=== PATIENT | female | born 1960 | race Caucasian/White ===

== ENCOUNTER → 2018-09-08 | Outpatient (CLI) | payer MEDICARE ==
--- NOTE | 2018-09-09 09:38 | MR ---
Right hip MRI HISTORY: Pain in right hip Multiplanar multisequence imaging through the pelvis with small [id number] images through the righ t hip No comparisons Abnormal increased signal is present at the level of the insertion of the gluteus medius tendon, the tendon is thickened and partially retracted. Some local marrow signal change is present which is like ly reactive, intermediate on T1, increased and T2-weighted sequences. Some increased signal also note d at the origin of the inferior gemellus or external rotator suggesting partial tear or tendinosis. T he labrum shows no definite tear. Articular cartilage signal is maintained. Subchondral geode present along the bony labrum level. There is some mild increased signal at the origin of the hamstring musc ulature which may represent tendinosis or chronic tear. IMPRESSION: Gluteus medius tendon tear and additional findings above.
== END | disposition home or self-care (01) ==
LOC: RADMRIMAIN 16:27
PROVIDERS: ATTEND Orthopaedic Surgery
DX: S39.013A Strain of muscle, fascia and tendon of pelvis, initial encounter (principal); I10 Essential (primary) hypertension

== ENCOUNTER → 2020-05-28 | Outpatient (CLI) | payer MEDICARE ==
--- NOTE | 2020-05-28 14:04 | MR ---
EXAMINATION TYPE: MR lumbar spine wo con DATE OF EXAM: 05/28/2020 COMPARISON: None HISTORY: Low back pain, TECHNIQUE: Multiplanar, multisequence images of the lumbar spine were acquired. The lumbar vertebral segments are normal in height and alignment and there is no fracture or subluxat ion. There is mild to moderate disc disease throughout the lower thoracic and lumbar region greatest at th e L5-S1 level where there are mild discogenic endplate changes. There are no lumbar disc herniations. There is mild posterior disc bulge throughout the lumbar region resulting in mild mass effect on the ventral aspect of thecal sac. There is mild spinal stenosis at the L2-3 and L4-5 levels econdary to h ypertrophy of the facets and mild thickening of the ligamentum flavum. There is mild narrowing of the neural foramina at the L2-3 level bilaterally right greater than left. There is moderate facet degeneration at the L4-5 and L5-S1 levels. The paraspinal soft tissues are unremarkable. IMPRESSION: 1. [id number] degenerative disc disease throughout the lower thoracic and lumbar region. 2. Mild spinal stenosis at the L2-3 and L4-5 levels. 3. No lumbar disc herniation. 4. Moderate to marked facet degeneration in the lower lumbar spine.
== END | disposition home or self-care (01) ==
LOC: RADMRIMAIN 12:56
PROVIDERS: ATTEND Orthopaedic Surgery Orthopaedic Surgery of the Spine
DX: M48.061 Spinal stenosis, lumbar region without neurogenic claudication (principal); M51.34 Other intervertebral disc degeneration, thoracic region; M51.36 Other intervertebral disc degeneration, lumbar region; M47.816 Spondylosis without myelopathy or radiculopathy, lumbar region
CPT/HCPCS: 72148

== ENCOUNTER → 2021-01-16 | Outpatient (CLI) | payer MEDICARE ==
[2021-01-16 13:09] VITALS: BP 137/85; PULSE 73; RESP 18; TEMP 98.7
--- NOTE | 2021-01-16 13:28 | P.PAINCN ---
History of Present Illness - Reason for Consult Consult date: 01/16/21 - History of Present Illness This is a 60 years old female with a chronic history of severe back pain, started more than 10 years ago and she is diagnosed with lumbar degenerative disc disease, and lumbar spondylosis with lumbar facet arthropathy, patient had diagnostic medial branch block lumbar area at L3, L4, L5, bilaterally and she gets 9200% improvement of her low back pain after each block, and she was referred to [facility] to have RFA of the medial branch lumbar area, and reported that her pain is constant and increases with any activity interfere with her quality of life and mostly axial back pain, currently she is on Ultram 50 mg 3 times a day when necessary and she is done physical therapy previously for 8 weeks, and she continued to have severe back pain after physical therapy she continued to do home exercise, denies any motor or sensory deficit she denies any fever or night sweats and there is no change in bowel movement or urination Past Medical History Past Medical History: GERD/Reflux, Hypertension Additional Past Medical History / Comment(s): lower lumbar pain History of Any Multi-Drug Resistant Organisms: None Reported Past Surgical History: Appendectomy, Bariatric Surgery, Cholecystectomy, Heart Catheterization, Hysterectomy, Tonsillectomy Additional Past Surgical History / Comment(s): lap band placed and removed, gastric sleeve,. lt hand surgery x2, rt great toe Past Anesthesia/Blood Transfusion Reactions: No Reported Reaction Smoking Status: Current every day smoker Medications and Allergies Home Medications Medication Instructions Recorded Confirmed Type Aspirin [Adult Low Dose Aspirin EC] 81 mg PO DAILY 01/13/21 01/13/21 History Cholecalciferol (Vitamin D3) 125 mcg PO DAILY 01/13/21 01/13/21 History [Vitamin D3 (125 MCG = 5,000 IU)] Esomeprazole Magnesium [NexIUM 20 mg PO DAILY 01/13/21 01/13/21 History 24Hr] Losartan [Cozaar] 50 mg PO DAILY 01/13/21 01/13/21 History Sertraline HCl [Zoloft] 200 mg PO DAILY 01/13/21 01/13/21 History Sucralfate [Carafate] 1 gm PO QID PRN 01/13/21 01/13/21 History amLODIPine [Norvasc] 5 mg PO DAILY 01/13/21 01/13/21 History buPROPion [Wellbutrin] 100 mg PO DAILY 01/13/21 01/13/21 History traMADol HCl [Ultram] 50 mg PO TID PRN 01/13/21 01/13/21 History traZODone HCL 100 mg PO HS 01/13/21 01/13/21 History Allergies Allergy/AdvReac Type Severity Reaction Status Date / Time prochlorperazine Allergy Unknown Verified 01/13/21 12:53 [From Compazine] sulfamethoxazole Allergy Rash/Hives Verified 01/13/21 12:53 [From Bactrim] trimethoprim [From Bactrim] Allergy Rash/Hives Verified 01/13/21 12:53 Physical Exam Vitals: Vital Signs Temp Pulse Resp BP Pulse Ox 01/16/21 13:03 98.7 F 73 18 137/85 96 Physical Examinations : -Constitutiona : Cooperative , not in acute distress . -HEENT : nech : supple , no Lymphadenopathy , normal thyroid size . : eyes : no ptosis , no icterus, no photophobia . - neurologic : Cranial nerve II to XII intact , no focal neurological deffecit . -psychatric : alert , oriented X 3 , appropriate affect , intact judgment and insight . -Lymphatic : no Lymphadenopathy . - musculoskeltal : Lumber spine moter stegnth lower extremities ,thigh and legs 5/5 Right side , 5/5 Left side deep tendon reflexes : normal Knee Jerk , normal ankle Jerk lumber facet Loading Test =positive Right , positive Left Range of motion of the lumbar spine Flexion 30 degrees, extension 10 degrees strait leg raising test = positive at 30 degree Fabere test= positive Right , and positive LT . Sever tenderness over the Sacroiliac joint on the Right , and Left sides Gaenslen test= positive right ,and positive left . Seated flexion test= positive right ,and positive Left . Distraction test= positive bilaterally Sacroiliac compression test= positive bilaterally Results Comments: MRI of the lumbar spine= lumbar degenerative disease and lumbar spondylosis with lumbar facet arthropathy Assessment and Plan Plan: Assessment and plan=1- Lumbar spondylosis with lumbar facet arthropathy without myelopathy. 2- Lumbar degenerative disc disease. 3-sacroiliitis. she had diagnostic Lumbar medial branch block x2 at [facility], and she got 90% improvement of her low back pain she will be "good candidate to have RFA medial branch lumbar area at L3, L4, L5 bilaterally Time with Patient: Greater than 30 PQRS Measure Charge Sheet Measure #130: Documentation of Current Meds in Medical Chart: Patient's medications documented in chart Measure #226: Tobacco Use: Screen & Cessation Intervention: Pt screened for tobacco use AND intervention given Measure #111: Pneumonia Vaccination: Pneumococcal vaccine NOT administered or previously given Measure #47: Advance Care Plan: Advance care planning discussed & documented, pt chose/unable to give Measure #412: Opioid Treatment Agreement: No documentation of signed opioid treatment agreement Measure #408: Opioid Therapy Follow-up Evaluation: Patient had NO f/u eval minimum every 3 months during opioid therapy Measure #317: Preventitive Care & Scrn High Bld Press & F/U: Normal blood pressure, f/u not required Measure #128: Body Mass Index (BMI) Screening & Follow-up: BMI documented ABOVE normal parameters - f/u documented Measure #131: Pain Assessment & Follow-up: Pain positive & plan documented, Follow-up scheduled Measure #431: Unhealthy Alcohol Use Preventative Care & Scrn: Patient not identified as an unhealthy alcohol user Mode of Arrival: Ambulatory - Pain Location Lower Back Non-Pharmacological Interventions: Heat, Home Exercise, Physical Therapy, St retching Pharmacological Interventions: Block, Epidural, PRN Medication PQRS Narrative: Blood Pressure 137/85 Pain Intensity [Lower Back] 6 Scale Used Numeric (1 - 10) Hx Alcohol Use (MH) Yes Home Medications: Ambulatory Orders Aspirin [Adult Low Dose Aspirin EC] 81 mg PO DAILY 01/13/21 Cholecalciferol (Vitamin D3) [Vitamin D3 (125 MCG = 5,000 IU)] 125 mcg PO DAILY 01/13/21 Esomeprazole Magnesium [NexIUM 24Hr] 20 mg PO DAILY 01/13/21 Losartan [Cozaar] 50 mg PO DAILY 01/13/21 Sertraline HCl [Zoloft] 200 mg PO DAILY 01/13/21 Sucralfate [Carafate] 1 gm PO QID PRN 01/13/21 amLODIPine [Norvasc] 5 mg PO DAILY 01/13/21 buPROPion [Wellbutrin] 100 mg PO DAILY 01/13/21 traMADol HCl [Ultram] 50 mg PO TID PRN 01/13/21 traZODone HCL 100 mg PO HS 01/13/21
== END | disposition home or self-care (01) ==
LOC: PNWHC3 12:56
PROVIDERS: ATTEND Specialist
DX: M51.16 Intervertebral disc disorders with radiculopathy, lumbar region (principal); M47.896 Other spondylosis, lumbar region; M46.1 Sacroiliitis, not elsewhere classified; M46.96 Unspecified inflammatory spondylopathy, lumbar region
CPT/HCPCS: 99211

== ENCOUNTER 2021-02-24 07:00 | Day surgery (SDC) | payer MEDICARE ==
[2021-02-22 10:10] VITALS: BMI 34.7
[~2021-02-24 07:00] MED LIST: LACTATED RINGERS 1,000 ML IV SCH
[2021-02-24 07:23] VITALS: RESP 16; TEMP 97.4
[2021-02-24] MEDS ORDERED: LIDOCAINE 1% (10MG/ML) FOR IV START INTRADERMA ONE (07:29)
[2021-02-24] MEDS ORDERED: ROPIVACAINE 5MG/ML 20ML VIAL ONE (08:14)
[2021-02-24] MEDS ORDERED: TRIAMCINOLONE ACETONIDE 40 MG/ML 1 ML VIAL ONE (08:14)
[2021-02-24] MEDS ORDERED: MIDAZOLAM 2 MG/2 ML VIAL ONE (08:14)
[2021-02-24] MEDS ORDERED: fentaNYL (PF) 50 MCG/ML 2 ML AMP ONE (08:14)
[2021-02-24] MEDS ORDERED: LACTATED RINGERS 1,000 ML IV SCH (08:15)
--- NOTE | 2021-02-24 08:48 | FL ---
Fluoroscopy INDICATION: Pain FINDINGS: Fluoroscopy time: 14 seconds. Images obtained: 0. IMPRESSIONS: 1. Documentation of fluoroscopy.
--- NOTE | 2021-02-24 08:48 | P.PCN ---
Date of Procedure: 02/24/21 Description of Procedure: Pre- and Post-operative Diagnosis: Lumbar facet arthropathy, and lumbar spon dylosis without myelopathy. Procedure: Bilateral L4-5 radiofrequency thermocoagulation of medial branch under fluoroscopic guidance Bilateral L5-S1 dorsal ramus radiofrequency thermocoagulation under fluoroscopic guidance Surgeon: Cristina Delacruz Anesthesia: Local: 1% Lidocaine, IV sedation : Midazolam 2 mg, and fentanyl 100+ 50 + 50 micrograms. Complications: None Estimated blood loss: None. Specimen removed: None Fluoroscopic image: Saved to patient electronic medical records. Indications for Procedure: The patient is well known to pain clinic for his chronic low back pain management. The lumbar facet loading test was positive with a clinical diagnosis of lumbar facet arthropathy. Patient had marked decrease in pain after the diagnostic medial branch procedure. Came here for radiofrequency ablation for longer pain relief. PROCEDURE DESCRIPTION: The patient was seen and identified in the preoperative area. Risks, benefits, complications, and alternatives were discussed with the patient. The patient agreed to proceed with the procedure and signed the consent. IV was started. Vital signs were stable. Patient was taken to the procedure room and timeout was completed. The patient was placed in the prone position on procedure table and a pillow was placed under the abdomen to reduce lumbar lordosis. The lumbosacral area was prepped and draped in the usual sterile fashion. Critical pause was taken. Vital signs were closely monitored during the procedure. The fluoroscopic camera was placed in the anteroposterior position to identify the junction of superior articular process and its corresponding injection with its transverse process of Right side L4, L5, S1, which were anesthetized with 1% lidocaine. We used 18-gauge 100-mm curved, sharp radiofrequency cannula with 10-mm active tip for the procedure. The first cannula was guided by fluoroscopy to the S1 superior articular process and its corresponding junction with its ala. The second cannula was guided by fluoroscopy into the L5 superior articular process and its corresponding junction with its transverse process and pedicle. The third cannula was guided by fluoroscopy into the L4 SAP and its corresponding junction with its transverse process and its pedicle. After confirmation of needle tip position on oblique view, lateral view , then each site underwent motor testing at 2 Hz and 0 to 2.5 volts, and there was good motor stimulation in the back and no radicular symptoms or paresthesias. After confirmation of motor testing, each site was infiltrated with 0.5 mL at each level of block solution. Block solution contained 5 mL of 0.5% Ropivacaine preservative free mixed with 40 MG of Kenalog. At this time, each site was ablated using continuous radiofrequency mode at 80 degrees Celsius for 90 seconds at each level. At the end of the procedure, each needle was retracted approximately 1 cm and the skin was infiltrated with 0.5% ropivacaine preservative free 1 ml at each site. Entire procedure repeated on the left side. All the needles removed intact. Skin was cleansed and bandages were applied. Disposition : The patient tolerated the procedure very well. The patient was transferred to the recovery room and remained stable until discharged home. The patient was given detailed discharge instructions for infection, bleeding, and increased pain at the injection site, and was advised to seek immediate medical attention should significant side effects develop. The patient will be scheduled with Pain Clinic within 4 weeks.
[2021-02-24] MEDS ORDERED: LACTATED RINGERS 700 ML IV ONE (08:49)
[2021-02-24 09:08] VITALS: BP 122/73; PULSE 76
== END 2021-02-24 09:19 | disposition home or self-care (01) ==
LOC: ORPAIN 07:00
DX: G89.29 Other chronic pain (principal); M47.816 Spondylosis without myelopathy or radiculopathy, lumbar region; I10 Essential (primary) hypertension; K21.9 Gastro-esophageal reflux disease without esophagitis; Z90.49 Acquired absence of other specified parts of digestive tract; Z98.890 Other specified postprocedural states; Z88.2 Allergy status to sulfonamides; Z88.8 Allergy status to other drugs, medicaments and biological substances; Z90.710 Acquired absence of both cervix and uterus; Z79.82 Long term (current) use of aspirin
CPT/HCPCS: 64635; 64636; J2250; J3301; J3010; J2795

== ENCOUNTER → 2021-04-17 | Outpatient (CLI) | payer MEDICARE ==
[2021-04-17 10:47] VITALS: BP 130/86; PULSE 65; RESP 18; TEMP 98.3
--- NOTE | 2021-04-17 20:27 | P.PN ---
Subjective Progress Note Date: 04/17/21 This is a follow-up visit for this 60 years old female with a chronic history of severe back pain, she is diagnosed with lumbar spondylosis with lumbar facet arthropathy and lumbar degenerative disc disease , and sacroiliitis, status post RFA medial branch block lumbar area at L3, L4, L5, bilaterally reported that her pain is constant and increases with any activity interfere with her activities of daily living , patient already done physical therapy she continued to do home exercise, denies any motor or sensory deficit she denies any fever or night sweats and there is no change in bowel movement or urination she continue to use Tylenol and Ultram when necessary, the low back pain currently radiating to the buttock area bilaterally Physical Examinations : -Constitutiona : Cooperative , not in acute distress . -HEENT : nech : supple , no Lymphadenopathy , normal thyroid size . : eyes : no ptosis , no icterus, no photophobia . - neurologic : Cranial nerve II to XII intact , no focal neurological deffecit . -psychatric : alert , oriented X 3 , appropriate affect , intact judgment and insight . -Lymphatic : no Lymphadenopathy . - musculoskeltal : Lumber spine moter stegnth lower extremities ,thigh and legs 5/5 Right side , 5/5 Left side deep tendon reflexes : normal Knee Jerk , normal ankle Jerk lumber facet Loading Test = negative bilaterally Range of motion of the lumbar spine Flexion 30 degrees, extension 10 degrees strait leg raising test = negative bilaterally Fabere test= negative bilaterally . Sever tenderness over the Sacroiliac joint on the Right , and Left sides Gaenslen test= positive right ,and positive left . Seated flexion test= positive right ,and positive Left . Distraction test= positive bilaterally Sacroiliac compression test= positive bilaterally Results Comments: MRI of the lumbar spine= lumbar degenerative disease and lumbar spondylosis with lumbar facet arthropathy Assessment and Plan Plan: Assessment and plan= 1- Lumbar spondylosis with lumbar facet arthropathy without myelopathy. 2- Lumbar degenerative disc disease. 3-sacroiliitis. Patient could benefit from bilateral sacroiliac joint steroid injection under fluoroscopy guidance Time with Patient: Greater than 30 PQRS Measure Charge Sheet Measure #130: Documentation of Current Meds in Medical Chart: Patient's medications documented in chart Measure #226: Tobacco Use: Screen & Cessation Intervention: Pt screened for tobacco use AND intervention given Measure #111: Pneumonia Vaccination: Pneumococcal vaccine NOT administered or previously given Measure #47: Advance Care Plan: Advance care planning discussed & documented, pt chose/unable to give Measure #412: Opioid Treatment Agreement: No documentation of signed opioid treatment agreement Measure #408: Opioid Therapy Follow-up Evaluation: Patient had NO f/u eval minimum every 3 months during opioid therapy Measure #317: Preventitive Care & Scrn High Bld Press & F/U: Normal blood pressure, f/u not required Measure #128: Body Mass Index (BMI) Screening & Follow-up: BMI documented ABOVE normal parameters - f/u documented Measure #131: Pain Assessment & Follow-up: Pain positive & plan documented, Follow-up scheduled Measure #431: Unhealthy Alcohol Use Preventative Care & Scrn: Patient not identified as an unhealthy alcohol user Mode of Arrival: Ambulatory Objective - Vital Signs Vital signs: Vital Signs Temp 98.3 F 04/17/21 10:06 Pulse 65 04/17/21 10:06 Resp 18 04/17/21 10:06 BP 130/86 04/17/21 10:06 Pulse Ox 96 04/17/21 10:06 Intake & Output 04/17/21 04/17/21 04/18/21 06:59 18:59 06:59 Weight 87.543 kg
== END | disposition home or self-care (01) ==
LOC: PNWHC3 09:57
PROVIDERS: ATTEND Specialist
DX: M51.36 Other intervertebral disc degeneration, lumbar region (principal); M47.896 Other spondylosis, lumbar region; M46.96 Unspecified inflammatory spondylopathy, lumbar region
CPT/HCPCS: 99211

== ENCOUNTER 2021-06-01 09:16 | Day surgery (SDC) | payer MEDICARE ==
[2021-05-30 15:23] VITALS: BMI 35.4
[2021-06-01 09:52] VITALS: RESP 16; TEMP 98
[2021-06-01] MEDS ORDERED: methylPREDNISolone ACETATE 40 MG/ML 1 ML VIAL ONE (09:55)
[2021-06-01] MEDS ORDERED: MIDAZOLAM 2 MG/2 ML VIAL ONE (09:55)
[2021-06-01] MEDS ORDERED: ROPIVACAINE 5MG/ML 20ML VIAL ONE (09:55)
[2021-06-01] MEDS ORDERED: IOPAMIDOL M200 10 ML VIAL ONE (09:55)
[2021-06-01] MEDS ORDERED: fentaNYL (PF) 50 MCG/ML 2 ML AMP ONE (09:55)
--- NOTE | 2021-06-01 10:10 | P.PCN ---
Date of Procedure: 06/01/21 Description of Procedure: Procedure: Sacroiliac joint injection bilateral Preoperative diagnosis: Sacroiliitis Postoperative diagnosis: Sacroiliitis Imaging: Fluoroscopy was used, images where saved to the medical record Complications: none Anesthesia: 1% lidocaine 5cc with 2 mg of Versed and 100 g of fentanyl Description of the procedure: procedure risk and benefits discussed with the patient, including but not limited, risk of infection and bleeding, and allergic reaction to the medication and incomplete pain relief. Patient agreed and signed consent. Patient was taken to the room and placed in a prone position. Chlorhexidine was used to cleanse the skin. Under sterile conditions patient skin was anesthetized 1% lidocaine. Subcutaneous tissues were also anesthetized with a total 5 mL of 1% lidocaine. After that, a 25-gauge spinal needle was advanced through the anesthetized location under fluoroscopic guidance. Needle was advanced into the inferior portion of the sacroiliac joint. IV contrast was used to confirm spread within the joint. After adequate spread was achieved, 2.5 ML's of 0.5% ropivacaine with 40 mg of depomedrol was injected into the joint (steroid split between both sides if bilateral). Patient tolerated the procedure well. Sent to the recovery room in stable condition. Patient will follow up as directed in the clinic in 4 weeks.
[2021-06-01] MEDS ORDERED: IV FLUID CONTINUATION 1,000 ML IV ONE (10:18)
[2021-06-01 10:34] VITALS: BP 102/62; PULSE 60
--- NOTE | 2021-06-01 10:36 | FL ---
Fluoroscopy HISTORY: Pain 16 seconds fluoroscopy time supplied to the referring clinician. 2 intraoperative C-arm images docum ent the procedure. See dictated report from anesthesia.
== END 2021-06-01 10:52 | disposition home or self-care (01) ==
LOC: ORPAIN 09:16
PROVIDERS: ATTEND Hospitalist
DX: M46.1 Sacroiliitis, not elsewhere classified (principal); Z79.82 Long term (current) use of aspirin
CPT/HCPCS: J2250; J1030; J3010; Q9966; J2795; G0260; 99152

== ENCOUNTER → 2021-06-22 | Outpatient (CLI) | payer MEDICARE ==
--- NOTE | 2021-06-22 10:17 | P.PN ---
Subjective Progress Note Date: 06/22/21 Principal diagnosis: A 60 yr old female with a history of severe and chronic low back pain secondary to lumbar degenerative disc diseases and lumbar spondylosis with facet arthropathy presents today for evaluation status post bilateral SI joint injection #1. Patient states she expanse 80% pain relief x 3 weeks status post procedure. Pain level is currently at 3 out of 10 in intensity, pressure, swollen, stabbing type pain in the lower aspects of her lumbar spine where it meets her pelvis. Denies radiation of pain. Pain is provoked by bending and lifting. Pain is alleviated with medications, topicals, physical therapy in January 2021, chiropractic treatments and 2019, home exercise regimen which includes sitting with legs elevated, massage, repositioning and rest. Interventional pain procedures completed include bilateral SI joint injection #1, bilateral RFA of L4-L5, L5-S1. Patient is currently on Ultram Patient denies any side effects of the medication(s), denies excessive drowsiness or sleepiness, denies suicidal ideation and reports that the current pain medication is helping to control the pain and improve activities of daily living. Patient denies any motor or sensory deficits. Patient denies any fever or night sweats, denies any change in the bowel movements or urination. Physical Examination: -Constitutional: Cooperative. Not in acute distress . -HEENT: Neck is supple. No lymphadenopathy. No thyromegaly. Normal thyroid size. Eyes: No ptosis , no icterus, no photophobia. ENT: No auditory deficits. Normal oropharynx. No Thrush. - Respiratory: Chest clear to auscultations bilaterally. No wheezing. No rhonchi. - Cardiovascular: Regular rate and rhythm. S1 / S2 , no S3 , no S4. - Gastrointestinal: Abdomen soft no tenderness. Bowel sounds positive in all four quadrants. No organomegaly. - Genitourinary: Deferred. - Neurologic: Cranial nerve II to XII intact. No focal neurological deficits. - Psychatric: Alert & oriented x 3. Matching mood & appropriate affect. Judgment and insight intact. - Lymphatic: No Lymphadenopathy. - Musculoskeletal: Cervical spine: Muscle bulk/ tone/ strength in the bilateral upper extremities normal. Facet loading test cervical area positive. Lumbar spine: Motor bulk/ tone/ strength lower extremities , thigh and legs : 5/5 Deep tendon reflexes : Normal Knee Jerk. Normal Ankle Jerk . Vertebral body tenderness to palpation over Lumbar Facet Loading Test positive Straight Leg Raise: positive at 30 degrees right side/ left side Gaenslen's Test positive Sacral spine : Severe tenderness over the Sacroiliac joint: right side / left side Range of motion: Flexion of the lumbar spine <60 degrees Range of motion: Extension of the lumbar spine <20 degrees Gaenslen's Test positive Debra test: positive right side / left side Assessment and plan: Chronic low back pain secondary to lumbar degenerative disc disease , lumbar spondylosis with facet arthropathy without myelopathy Recommendation of bilateral SI joint injection #2 Risks, benefits of procedure discussed and patient verbalized understanding. Denies anticoagulant use. Denies medical history of diabetes mellitus. All patient questions answered MAPS reviewed and it was appropriate. I have spent 31 minutes on patient care today. Dr Cline was available by phone for the evaluation of this patient. The time was used to review the medical records including relevant urine studies and Prescription history (MAPs), review of the available imaging, evaluation and examination of the patient, coordination of care with the medical staff and if applicable referring physicians, as well as creation of the medical record PQRS Measure Charge Sheet PQRS Narrative: Hx Alcohol Use (MH) Yes Home Medications: Ambulatory Orders Aspirin [Adult Low Dose Aspirin EC] 81 mg PO DAILY 01/13/21 Cholecalciferol (Vitamin D3) [Vitamin D3 (125 MCG = 5,000 IU)] 125 mcg PO DAILY 01/13/21 Esomeprazole Magnesium [NexIUM 24Hr] 20 mg PO DAILY 01/13/21 Losartan [Cozaar] 50 mg PO DAILY 01/13/21 Sertraline HCl [Zoloft] 200 mg PO DAILY 01/13/21 Sucralfate [Carafate] 1 gm PO QID PRN 01/13/21 amLODIPine [Norvasc] 5 mg PO DAILY 01/13/21 buPROPion [Wellbutrin] 100 mg PO DAILY 01/13/21 traMADol HCl [Ultram] 50 mg PO TID PRN 01/13/21 traZODone HCL 100 mg PO HS 01/13/21 Metoprolol Tartrate [Lopressor] 12.5 mg PO BID 05/30/21 Rosuvastatin Calcium [Crestor] 40 mg PO HS 05/30/21
[2021-06-22 12:43] VITALS: BP 112/74; PULSE 58; RESP 18; TEMP 98.3
== END | disposition home or self-care (01) ==
LOC: PNWHC3 09:14
PROVIDERS: ATTEND Physician Assistant Medical
DX: M47.896 Other spondylosis, lumbar region (principal); M51.36 Other intervertebral disc degeneration, lumbar region
CPT/HCPCS: 99211

== ENCOUNTER → 2021-08-17 | Outpatient (CLI) | payer MEDICARE ==
--- NOTE | 2021-08-17 17:08 | MR ---
MR left hip HISTORY: Osteoarthritis Multiplanar multisequence imaging obtained through the pelvis with small [id number] images through the left hip Correlation to MR right hip 09/08/2018 There is a spinal curvature, degenerative disc change in the lower lumbar spine There is a left hip joint effusion. Marginal spurring is present. Probable reactive marrow signal vanita nges present within the proximal left femur as well as the acetabulum. Some grade 3 to grade IV chond romalacia is present within the left hip. No definite labral tear. No fracture or dislocation. The origins of the hamstring musculature are normal. There is some improvement in the abnormal signal seen on previous exam about the right hip. No evident adenopathy. IMPRESSION: Osteoarthritis left hip, additional findings above.
== END | disposition home or self-care (01) ==
LOC: RADMRIMAIN 12:36
PROVIDERS: ATTEND Orthopaedic Surgery
DX: M16.12 Unilateral primary osteoarthritis, left hip (principal)

== ENCOUNTER → 2021-09-21 | Outpatient (CLI) | payer MEDICARE ==
[2021-09-21 15:24] LABS: INR 0.9 (<1.2); Prothrombin Time 9.9 sec (9.0-12.0)
[2021-09-21 18:13] LABS: HCT 37.2 % (37.2-46.3); HGB 11.7 g/dL (12.0-15.0); MCH 27.7 pg (27.0-32.0); MCHC 31.5 g/dL (32.0-37.0); MCV 88.2 fL (80.0-97.0); Mean Platelet Volume 10.6 fL (9.5-12.2); NRBC Per 100 WBC 0 /100 WBCS (0.0-0.0); Platelet Count 234 X 10*3/uL (140-440); RBC 4.22 X 10*6/uL (4.10-5.20); RDW 15.1 % (11.5-14.5); WBC 7.01 X 10*3/uL (4.50-10.00)
[2021-09-21 18:42] LABS: African American GFR (CKD) 100.6 (60.0-200.0); Albumin 4.3 g/dL (3.8-4.9); Albumin/Globulin Ratio 1.53 (1.60-3.17); Anion Gap 11.7 mmol/L (10.00-18.00); BUN/Creat Ratio 15.75 Ratio (12.00-20.00); Blood Urea Nitrogen 11.8 mg/dL (9.0-27.0); Calcium 9.4 mg/dL (8.7-10.3); Carbon Dioxide 24.5 mmol/L (20.0-27.5); Globulin 2.8 g/dL (1.6-3.3); Non-African American GFR(CKD) 86.8 (60.0-200.0); Total Bilirubin 0.2 mg/dL (0.30-1.20); Total Protein 7.1 g/dL (6.2-8.2)
[2021-09-21 20:38] LABS: Appearance,Urine Cloudy (Clear); Bilirubin,Urine Negative (Negative); Blood,Urine Negative (Negative); Color,Urine Dark Yellow (Yellow); Ketones,Urine Trace mg/dL (Negative); Nitrite,Urine Negative (Negative); PH, Urine 5.5 (5.0-8.0); Urobilinogen,Urine 0.2 (0.2,1.0)
[2021-09-21 21:06] LABS: Bacteria,Urine None Seen /HPF (None Seen); Calcium Oxalate Crystals,Urine Present /LPF (None Seen); Mucus,Urine Present /LPF (None Seen)
== END | disposition home or self-care (01) ==
LOC: LABPAT 12:21
PROVIDERS: ATTEND Orthopaedic Surgery
DX: Z01.812 Encounter for preprocedural laboratory examination (principal); M16.12 Unilateral primary osteoarthritis, left hip
CPT/HCPCS: 80053; 81001; 82607; 83540; 83721; 84443; 85027; 85610; 85730; 87070

== ENCOUNTER 2021-10-02 05:40 | Observation (INO) | payer MEDICARE ==
[2021-09-28 11:32] VITALS: BMI 36.3
[~2021-10-02 05:40] MED LIST changes: +ACETAMINOPHEN TAB 500 MG TAB PO PRN; +GABAPENTIN 300 MG CAP PO PRN; -LACTATED RINGERS 1,000 ML IV SCH; +MELOXICAM 7.5 MG TAB PO PRN; +TRANEXAMIC ACID IN NACL,ISO-OS 1,000 MG in SALINE 1 100ML.BAG IVPB PRN
[2021-10-02] MEDS ORDERED: DEXAMETHASONE SOD PHOSPHATE 4 MG/ML 1 ML VIAL IV ONE (05:54)
[2021-10-02] MEDS ORDERED: ONDANSETRON 4 MG/2 ML VIAL IVP ONE (05:54)
[2021-10-02] MEDS: LACTATED RINGERS 1,000 ML IV SCH (06:05)
[2021-10-02] MEDS ORDERED: GLYCOPYRROLATE 0.2 MG/ML 2 ML VIAL ONE (06:55)
[2021-10-02] MEDS ORDERED: SUCCINYLCHOLINE CHLORIDE 100 MG/5 ML SYR IV ONE (06:55)
[2021-10-02] MEDS ORDERED: ROCURONIUM 10 MG/ML (5 ML VIAL) IV ONE (06:55)
[2021-10-02] MEDS ORDERED: KETAMINE 10 MG/ML 20 ML VIAL ONE (06:55)
[2021-10-02] MEDS ORDERED: PHENYLEPHRINE-0.9% NACL SYG 1,000 MCG/10 ML SYRINGE ONE (06:55)
[2021-10-02] MEDS ORDERED: MIDAZOLAM 2 MG/2 ML VIAL ONE (06:55)
[2021-10-02] MEDS ORDERED: fentaNYL (PF) 50 MCG/ML 2 ML AMP ONE (06:55)
[2021-10-02] MEDS ORDERED: PROPOFOL 10 MG/ML 20 ML VIAL IV ONE (06:55)
[2021-10-02] MEDS ORDERED: ePHEDrine 50 MG/ML 1 ML VIAL ONE (06:55)
[2021-10-02] MEDS ORDERED: TRANEXAMIC ACID IN NACL,ISO-OS 1,000 MG/100 ML BAG ONE (06:55)
[2021-10-02] MEDS ORDERED: NEOSTIGMINE 1 MG/ML 10 ML VIAL ONE (06:55)
[2021-10-02] MEDS ORDERED: ROPIVACAINE 5 MG/ML 30 ML VIAL MISCELLANE ONE ×2 (07:31→08:12)
[2021-10-02] MEDS ORDERED: ceFAZolin 1,000 MG in SODIUM CHLORIDE 0.9% 1,000 ML IRRIGATION ONE (07:32)
--- NOTE | 2021-10-02 08:18 | P.OP ---
Date of Procedure: 10/02/21 Preoperative Diagnosis: Severe osteoarthritis left hip Postoperative Diagnosis: Severe osteoarthritis left hip Procedure(s) Performed: Left total arthroplasty with a direct anterior approach Implants: [employer] Polarstem standard size 6 collar [employer] R3, 3 hole hemispherical acetabular shell, 48 mm [employer] Reflection 6.5 mm cancellus screw, 20 mm, 25 mm [employer] R3, XLPE 20 acetabular liner [employer] Oxinium femoral head 32 m, +0 All components were press-fit. The articulation is Oxinium on polyethylene. Anesthesia: GETA, spinal Surgeon: Venkatesh Lopez Injection Molding Operator #1: Gracy Car Estimated Blood Loss (ml): 250 Pathology: other (Femoral head) Condition: stable Disposition: PACU Indications for Procedure: After failure of conservative treatment we discussed the surgical and non surgical treatment options at length. Patient wishes to proceed with a total hip arthroplasty with a direct anterior approach. Complications specific to this procedure were discussed at length, including but not limited to infection, leg length discrepancy, dislocation, nerve injury, and fracture. Covid-19 was also discussed at length with the patient, and they are aware of the current policies and procedures. The patient was given the option of delaying surgery, but they elect to proceed knowing these risks. Patient is aware of all these complications and informed consent was obtained Operative Findings: The operative findings are consistent with severe osteoarthritis the left hip Description of Procedure: Patient was seen and evaluated in the preoperative area and the consent was reviewed. The operative site was marked with a skin marker. The patient was then brought to the operating room and given preoperative antibiotics intravenously. 1 g of Tranexamic acid was also given intravenously. A spinal anesthetic was administered by the anesthesia department. The spinal anesthetic was found to be insufficient for anesthesia, so a general anesthetic was administered. The patient was then placed on the Hines table with the bony prominences well-padded. The hip area was then prepped with a ChloraPrep solution and draped in the usual sterile fashion. A universal timeout was then performed, which confirmed the patient's name, surgical site, ALLERGIES, and procedure being performed on the consent. Next the incision site was located at 1 cm distal and 2 cm lateral to the anterior superior iliac spine. The skin and subcutaneous tissues were sharply incised. Incision was carefully dissected down to the fascia overlying the tensor fascia zachary muscle. This fascia was then incised in line with the incision. Care was taken to stay laterally in order to avoid injuring the lateral femoral cutaneous nerve. Next, using blunt finger dissection, the tensor fascia zachary muscle was dissected off its investing fascia. The muscle was then carefully retracted laterally with a cobra retractor over the lateral neck of the femur. Next, the circumflex vessels were identified and cauterized using the AquaMantis device. The anterior hip capsule was then exposed. The capsule was then opened and an inverted T fashion. Cobra retractors were then placed intracapsularly. The retractors were maintained intracapsular throughout the procedure. The proximal femur was then visualized. Fluoroscopic x-rays were then taken in order to evaluate the preoperative leg lengths. A small amount of traction was placed on the leg. The femoral neck was then osteotomized at the appropriate level above the lesser trochanter. A small wedge of bone was then removed from the remaining femoral head. Next, using a corkscrew the femoral head was removed from the acetabulum. On gross visual inspection, the femoral head had complete loss of articular cartilage and multiple periarticular osteophytes. The femoral head was then measured. Attention was then turned to the acetabulum. The acetabulum was exposed and any remaining labrum was excised. Sequential reaming of the acetabulum was performed using fluoroscopic guidance until there was a good bed of bleeding cancellus bone. When the appropriate size was reache d, a trial was then placed. The position and fit of the trial was checked with fluoroscopy. The trial was then removed. Then, using fluoroscopic guidance, the final implant was impacted at 20 of anteversion and 40 of abduction, and fully seated in the acetabulum. 2 screws were then placed in the acetabulum. Again fluoroscopy was used to check position of the screws. Next, the liner was then impacted, with a 20 elevated liner located in the anterior superior quadrant. Component locking was confirmed. Attention was then directed to the femur. With the aid of the Hines table, the femur was externally rotated to approximately 130, extended, and adducted under the opposite leg. A side hook was then placed under the proximal femur, and the side hook elevator was used to elevate the proximal femur while releasing the capsule. Retractors were then placed. A capsular release was performed, as well as a release of the conjoined tendon, which afforded excellent visualization of the proximal femur. Next, a box osteotome was used to lateralize the proximal femur. A glass cutter hand was then used to locate the femoral canal. Sequential broaching was then performed with appropriate size which afforded excellent fixation in the proximal femur. A trial was then placed with appropriate head and neck, and the hip was gently reduced with the aid of the Hines table. Fluoroscopy was then used to check position of the components, as well as to ensure equal leg lengths. The hip was then gently dislocated and the trials were then removed. Final implants were then impacted and the hip was again reduced. Final fluoroscopic x-rays confirmed that the components were in anatomic position, as well as equal leg lengths. The hip was also taken through range of motion, and found to be stable. The hip was then copiously irrigated with antibiotic solution with pulsatile lavage. The hip was then irrigated with Irrisept solution. The soft tissues were then injected with a ropivacaine solution. A second dose of 1 g of Tranexamic acid was also given intravenously. The fascia was then closed with 2-0 strata fix suture. The subcutaneous tissue was closed with 3-0 Vicryl. The subcuticular tissue was closed with 3-0 strata fix suture. The skin was then closed with Exofin skin glue. After the glue and dried, and Optifoam silver impregnated dressing was applied. The patient was then transferred to the recovery room in stable condition. The resident assistant OBDULIO Walter was required due to the complexity of surgery, and the need for skilled surgical pathologist for positioning, draping, exposure, retraction, and closure of the wound.
[2021-10-02] MEDS ORDERED: diazePAM 5 MG TAB PO PRN (08:44)
[2021-10-02] MEDS ORDERED: HYDROmorphone 0.5 MG/0.5 ML SYRINGE IVP PRN (08:44)
[2021-10-02] MEDS ORDERED: ONDANSETRON 4 MG/2 ML VIAL IVP PRN (08:44)
[2021-10-02] MEDS ORDERED: MAGNESIUM HYDROXIDE 2,400 MG/10 ML CUP PO PRN (08:44)
[2021-10-02] MEDS ORDERED: TEMAZEPAM 15 MG CAP PO PRN (08:44)
[2021-10-02] MEDS ORDERED: NALOXONE 0.4 MG/ML 1 ML VIAL IV PRN (08:44)
[2021-10-02] MEDS: HYDROmorphone 0.5 MG/0.5 ML SYRINGE IVP PRN ×8 (09:05→21:35)
--- NOTE | 2021-10-02 09:21 | XR ---
Fluoroscopy History: TOTAL ANT HIP LT TOTAL ANTERIOR HIP. 36 SEC FL TIME. 3 IMAGES ON SYN
[2021-10-02] MEDS ORDERED: KETOROLAC 15 MG/ML 1 ML VIAL IVP ONE (09:22)
[2021-10-02] MEDS ORDERED: LACTATED RINGERS 1,000 ML IV ONE ×2 (09:30→11:30)
--- NOTE | 2021-10-02 09:35 | XR ---
EXAMINATION TYPE: XR Hip Limited LT DATE OF EXAM: 10/02/2021 CLINICAL HISTORY: Postoperative evaluation TECHNIQUE: Single portable view of the left hip was submitted. FINDINGS: Noted are changes of total hip arthroplasty with femoral and acetabular components appearin g well seated. Alignment is anatomic. Postsurgical soft tissue changes are evident. IMPRESSION: Satisfactory postoperative alignment
--- NOTE | 2021-10-02 09:38 | FL ---
Fluoroscopy History: TOTAL ANT HIP LEFT LT TOTAL ANTERIOR HIP. 36 SEC FL TIME. 3 IMAGES UNDER HIP REQUEST ON SYN
[2021-10-02] MEDS: SODIUM CHLORIDE 0.9% 1,000 ML IV SCH ×2 (12:27→20:53)
[2021-10-02] MEDS: HYDROcodone/APAP 7.5-325MG 1 EACH TAB PO PRN ×2 (12:37→23:09)
[2021-10-02] MEDS: SENNOSIDES-DOCUSATE SODIUM 1 EACH TAB PO SCH (21:25)
[2021-10-02] MEDS: ASPIRIN 325 MG TAB PO SCH (21:25)
[2021-10-02] MEDS: ATORVASTATIN 80 MG TAB PO SCH (21:25)
--- NOTE | 2021-10-02 22:48 | P.CONS ---
History of Present Illness - Reason for Consult Consult date: 10/02/21 Medical management - Chief Complaint Status post left total hip arthroplasty - History of Present Illness Patient is a 60-year-old female with a known history of hypertension, hyperlipidemia, osteoarthritis, coronary artery disease with history of cardiac catheterization and no PCI and prior gastric sleeve surgery and currently everyday smoker was admitted to the hospital for elective left total hip arthroplasty. Patient underwent left total arthroplasty with direct anterior approach. Tolerated the procedure very well. Postoperatively patient is hypotensive and bradycardic with heart rate in 50s. Patient otherwise denies any complaints of dizziness or lightheadedness. No cough or sputum production. No nausea vomiting or abdominal pain or diarrhea. Denies recent illnesses. Patient has been afebrile. No nausea vomiting. Review of Systems Constitutional: Patient denies any fever or chills . Generalized weakness. Abdomen: Patient denied any nausea or vomiting or abd. pain Cardiovascular: Patient denies any chest pain or short of breath no palpitations. Respiratory: patient denied any cough is from production. No shortness of breath Neurologic: Patient denied any numbness or tingling headache. Musculoskeletal: Patient denies any complaints of joint swelling or deformity. Skin: Negative Psychiatric: Negative Endocrine: No heat or cold intolerance. No recent weight gain. Genitourinary: No dysuria or hematuria. All other 14 point ROS negative except the above Past Medical History Past Medical History: Coronary Artery Disease (CAD), Eye Disorder, GERD/Reflux, Hyperlipidemia, Hypertension, Osteoarthritis (OA) Additional Past Medical History / Comment(s): Lower lumbar pain, Bilateral Cataract, migraines, occ palpitations, "mild CAD", hiatal hernia, hx ulcer, hx colitis, hx IBS, hx diverticulitis, degenerative disk disease, History of Any Multi-Drug Resistant Organisms: None Reported Past Surgical History: Appendectomy, Bariatric Surgery, Section, Cholecystectomy, Heart Catheterization, Hysterectomy, Orthopedic Surgery, Tonsillectomy Additional Past Surgical History / Comment(s): Lap band placed and removed, gastric sleeve, left hand surgery X2, right great toe surgery. COLONOSCOPY/EGD, Past Anesthesia/Blood Transfusion Reactions: No Reported Reaction Past Psychological History: Anxiety, Depression Smoking Status: Current every day smoker Past Alcohol Use History: Rare Additional Past Alcohol Use History / Comment(s): Smokes 1/4 ppd., has smoked for over 30 yrs Past Drug Use History: None Reported - Past Family History Mother Family Medical History: Cancer Additional Family Medical History / Comment(s): Breast cancer. Father Family Medical History: Cancer Additional Family Medical History / Comment(s): Colon Cancer. Medications and Allergies Home Medications Medication Instructions Recorded Confirmed Type Aspirin [Adult Low Dose Aspirin EC] 81 mg PO DAILY 01/13/21 10/02/21 History Cholecalciferol (Vitamin D3) 125 mcg PO DAILY 01/13/21 10/02/21 History [Vitamin D3 (125 MCG = 5,000 IU)] Esomeprazole Magnesium [NexIUM 20 mg PO DAILY 01/13/21 10/02/21 History 24Hr] Losartan [Cozaar] 50 mg PO DAILY 01/13/21 10/02/21 History Sertraline HCl [Zoloft] 200 mg PO DAILY 01/13/21 10/02/21 History Sucralfate [Carafate] 1 gm PO QID PRN 01/13/21 10/02/21 History amLODIPine [Norvasc] 5 mg PO DAILY 01/13/21 10/02/21 History traMADol HCl [Ultram] 50 mg PO TID PRN 01/13/21 10/02/21 History traZODone HCL 100 mg PO HS 01/13/21 10/02/21 History Metoprolol Tartrate [Lopressor] 12.5 mg PO BID 05/30/21 10/02/21 History Rosuvastatin Calcium [Crestor] 40 mg PO HS 05/30/21 10/02/21 History Aspirin 325 mg PO BID #60 tab 10/02/21 Rx HYDROcodone/APAP 7.5-325MG [[place] 1 - 2 tab PO Q6HR PRN #32 tab 10/02/21 Rx 7.5-325] Meloxicam [Mobic] 1 - 2 tab PO DAILY PRN #60 tab 10/02/21 Rx Ondansetron Odt [Zofran Odt] 4 mg PO Q8HR PRN #14 tab 10/02/21 Rx Sennosides-Docusate Sodium 1 tab PO BID #60 tablet 10/02/21 Rx [Senokot-S] Allergies Allergy/AdvReac Type Severity Reaction Status Date / Time prochlorperazine Allergy ABN. Verified 10/02/21 05:57 [From Compazine] FLIGHT/FIGHT RESPONSE sulfamethoxazole Allergy Rash/Hives Verified 10/02/21 05:57 [From Bactrim] trimethoprim [From Bactrim] Allergy Rash/Hives Verified 10/02/21 05:57 Physical Exam Vitals: Vital Signs Temp Pulse Pulse Resp BP Pulse Ox 10/02/21 11:30 58 L 16 82/51 97 10/02/21 11:00 75 16 98/54 96 10/02/21 10:30 74 16 101/55 97 10/02/21 10:00 53 L 16 116/61 66 L 10/02/21 09:45 68 18 122/64 97 10/02/21 09:30 71 16 107/69 98 10/02/21 09:15 76 16 114/58 95 10/02/21 09:00 70 16 117/60 97 10/02/21 08:48 96.8 F L 81 12 136/69 96 10/02/21 06:10 98.1 F 78 18 152/74 98 Intake and Output 10/01/21 10/02/21 10/02/21 22:59 06:59 14:59 Intake Total 100 1751 Output Total 250 Balance 100 1501 Intake: IV 100 1751 Output: Estimated Blood Loss 250 Other: Weight 92.3 kg 92.3 kg PHYSICAL EXAMINATION: Patient is lying in the bed comfortably, no acute distress, awake alert and oriented.. HEENT: Normocephalic. Neck is supple. Pupils reactive. Nostrils clear. Oral cavity is moist. Neck reveals no JVD, carotid bruits, or thyromegaly. CHEST EXAMINATION: Trachea is central. Symmetrical expansion. Lung scruggs clear to auscultation and percussion. CARDIAC: Normal S1, S2 with no gallops. No murmurs ABDOMEN: Soft. Bowel sounds present. Nontender. No organomegaly. No abdominal bruits. Extremities: reveal no edema. No clubbing or cyanosis Neurologically awake, alert, oriented x3 with well-coordinated movements. No focal deficits noted Skin: No rash or skin lesions. Psychiatric: Coperative. Nonsuicidal, anxious. Musculoskeletal: No joint swelling or deformity. Left hip surgical site is bandaged. Normal range of motion. Assessment and Plan Assessment: Left total hip arthroplasty postoperative day 0 Hypotension likely due to anesthesia and pain medications. Improving. Nonobstructive coronary disease with no history of PCI Hypertension Hyperlipidemia GERD Osteoarthritis History of gastric sleeve surgery Anxiety/depression Currently everyday smoker DVT prophylaxis. Plan: Patient will be continued on IV hydration. Does take Norvasc, metoprolol and losartan at home. Blood pressure medications on hold. Continue with pain medications and avoid narcotic medications as possible. Encourage incentive spirometry. Encourage ambulation and we will follow-up closely. Further recommendations based on the clinical course. Thank you for your consult.
[2021-10-03] MEDS: HYDROmorphone 1 MG/ML 1 ML SYRINGE IVP PRN ×2 (01:01→06:11)
[2021-10-03] MEDS: HYDROcodone/APAP 7.5-325MG 1 EACH TAB PO PRN (05:35)
[2021-10-03] MEDS: SODIUM CHLORIDE 0.9% 1,000 ML IV SCH ×2 (05:59→12:04)
[2021-10-03] MEDS: LACTATED RINGERS 1,000 ML IV SCH (06:00)
[2021-10-03 09:20] LABS: Basophils # (A) 0.04 X 10*3/uL (0.00-0.10); Basophils % (A) 0.4 %; Eosinophils # (A) 0 X 10*3/uL (0.04-0.35); Eosinophils % (A) 0 %; HCT 31.2 % (37.2-46.3); HGB 9.8 g/dL (12.0-15.0); Immature Grans, Automated 0.4 %; Lymphocytes # (A) 1.48 X 10*3/uL (0.90-5.00); Lymphocytes % (A) 13.2 %; MCH 27.8 pg (27.0-32.0); MCHC 31.4 g/dL (32.0-37.0); MCV 88.4 fL (80.0-97.0); Monocytes # (A) 1.05 X 10*3/uL (0.20-1.00); Monocytes % (A) 9.4 %; NRBC Per 100 WBC 0 /100 WBCS (0.0-0.0); Neutrophils # (A) 8.59 X 10*3/uL (1.80-7.70); Neutrophils % (A) 76.6 %; Platelet Count 207 X 10*3/uL (140-440); RBC 3.53 X 10*6/uL (4.10-5.20); RDW 14.9 % (11.5-14.5)
[2021-10-03] MEDS: SERTRALINE 100 MG TAB PO SCH (09:50)
[2021-10-03] MEDS: ASPIRIN 325 MG TAB PO SCH ×2 (09:50→20:51)
[2021-10-03] MEDS: HYDROcodone/APAP 10-325MG 1 EACH TAB PO PRN ×3 (09:51→20:51)
[2021-10-03 10:02] LABS: African American GFR (CKD) 90.4 (60.0-200.0); BUN/Creat Ratio 13.69 Ratio (12.00-20.00); Blood Urea Nitrogen 11.2 mg/dL (9.0-27.0); Calcium 8.9 mg/dL (8.7-10.3); Carbon Dioxide 20.9 mmol/L (20.0-27.5); Chloride 107 mmol/L (96-109); Glucose 96 mg/dL (70-110); Potassium 3.7 mmol/L (3.5-5.5); Sodium 141 mmol/L (135-145)
[2021-10-03] MEDS: KETOROLAC 15 MG/ML 1 ML VIAL IVP SCH ×2 (11:18→17:14)
[2021-10-03] MEDS: ATORVASTATIN 80 MG TAB PO SCH (20:51)
[2021-10-03] MEDS: SENNOSIDES-DOCUSATE SODIUM 1 EACH TAB PO SCH (20:51)
[2021-10-04] MEDS: KETOROLAC 15 MG/ML 1 ML VIAL IVP SCH ×3 (01:06→11:46)
[2021-10-04] MEDS: SODIUM CHLORIDE 0.9% 1,000 ML IV SCH ×2 (01:08→11:15)
[2021-10-04] MEDS: HYDROcodone/APAP 10-325MG 1 EACH TAB PO PRN ×2 (02:18→11:46)
[2021-10-04] MEDS: LACTATED RINGERS 1,000 ML IV SCH (06:30)
[2021-10-04 07:37] VITALS: BP 118/67; PULSE 86; RESP 18; TEMP 99.7
--- NOTE | 2021-10-04 07:47 | P.DS ---
Providers Date of admission: 10/03/21 08:12 Expected date of discharge: 10/04/21 Attending physician: Venkatesh Lopez Consults: 10/02/21 08:44 Consult Physician Routine Consulting Provider: Eileen Hernandez Consult Reason/Comments: Medical management Do you want consulting provider notified?: Yes Primary care physician: Elaina Forrester - Discharge Diagnosis(es) (1) Status post total replacement of left hip Current Visit: Yes Status: Acute (2) Osteoarthritis of left hip Current Visit: Yes Status: Acute Hospital Course: This is a 60-year-old Female with known history of degenerative arthritis of the Left hip. The patient presents for evaluation. After discussion and consideration patient elects to proceed with total hip arthroplasty with direct anterior approach. The patient is seen preoperatively by primary care physician and cleared for surgery. Patient is admitted to [facility] on 10/02/2021 for total hip arthroplasty with direct anterior approach. The procedure is performed without complication or sequelae. She had significant pain control issues on postop day #1. Her discharge was held. She is doing much better today, postop day #2. Labs and vital signs are stable on day of discharge. On day of discharge patient's hip incision is healing well. There is minimal erythema. There is no drainage noted at this time. There is minimal soft tissue swelling to the hip and thigh. Patient has full foot and ankle motion without difficulty or pain. Neurovascular status to the lower extremity is intact. Patient is discharged to home in good condition. Please see med rec for accurate list of home medications. Patient Condition at Discharge: Good Plan - Discharge Summary Discharge Rx Participant: Yes New Discharge Prescriptions: New Ondansetron Odt [Zofran Odt] 4 mg PO Q8HR PRN #14 tab PRN Reason: Nausea Aspirin 325 mg PO BID #60 tab Meloxicam [Mobic] 1 - 2 tab PO DAILY PRN #60 tab PRN Reason: Pain HYDROcodone/APAP 7.5-325MG [[place] 7.5-325] 1 - 2 tab PO Q6HR PRN #32 tab PRN Reason: Pain Sennosides-Docusate Sodium [Senokot-S] 1 tab PO BID #60 tablet Ketorolac [Toradol] 10 mg PO Q6HR #20 tab No Action Losartan [Cozaar] 50 mg PO DAILY Sucralfate [Carafate] 1 gm PO QID PRN PRN Reason: acid reflux Metoprolol Tartrate [Lopressor] 12.5 mg PO BID traZODone HCL 100 mg PO HS amLODIPine [Norvasc] 5 mg PO DAILY Cholecalciferol (Vitamin D3) [Vitamin D3 (125 MCG = 5,000 IU)] 125 mcg PO DAILY Sertraline HCl [Zoloft] 200 mg PO DAILY Aspirin [Adult Low Dose Aspirin EC] 81 mg PO DAILY traMADol HCl [Ultram] 50 mg PO TID PRN PRN Reason: Pain Esomeprazole Magnesium [NexIUM 24Hr] 20 mg PO DAILY Rosuvastatin Calcium [Crestor] 40 mg PO HS Discharge Medication List Aspirin [Adult Low Dose Aspirin EC] 81 mg PO DAILY 01/13/21 [History] Cholecalciferol (Vitamin D3) [Vitamin D3 (125 MCG = 5,000 IU)] 125 mcg PO DAILY 01/13/21 [History] Esomeprazole Magnesium [NexIUM 24Hr] 20 mg PO DAILY 01/13/21 [History] Losartan [Cozaar] 50 mg PO DAILY 01/13/21 [History] Sertraline HCl [Zoloft] 200 mg PO DAILY 01/13/21 [History] Sucralfate [Carafate] 1 gm PO QID PRN 01/13/21 [History] amLODIPine [Norvasc] 5 mg PO DAILY 01/13/21 [History] traMADol HCl [Ultram] 50 mg PO TID PRN 01/13/21 [History] traZODone HCL 100 mg PO HS 01/13/21 [History] Metoprolol Tartrate [Lopressor] 12.5 mg PO BID 05/30/21 [History] Rosuvastatin Calcium [Crestor] 40 mg PO HS 05/30/21 [History] Aspirin 325 mg PO BID #60 tab 10/02/21 [Rx] HYDROcodone/APAP 7.5-325MG [[place] 7.5-325] 1 - 2 tab PO Q6HR PRN #32 tab 10/02/21 [Rx] Meloxicam [Mobic] 1 - 2 tab PO DAILY PRN #60 tab 10/02/21 [Rx] Ondansetron Odt [Zofran Odt] 4 mg PO Q8HR PRN #14 tab 10/02/21 [Rx] Sennosides-Docusate Sodium [Senokot-S] 1 tab PO BID #60 tablet 10/02/21 [Rx] Ketorolac [Toradol] 10 mg PO Q6HR #20 tab 10/04/21 [Rx] Follow up Appointment(s)/Referral(s): [facility] [REFERRING] - As Needed Elaina Forrester DO [Primary Care Provider] - 1 Week Venkatesh Lopez DO [Doctor of Osteopathic Medicine] - 10/18/21 1:50 pm Activity/Diet/Wound Care/Special Instructions: May bear wt as tolerated w walker. Leave Optifoam dressing intact 7 days post op. May shower 48 h post op. Take Toradol (Ketotorlac) for the first 5 days, then may switch to Meloxicam daily. Discharge Disposition: HOME WITH HOME HEALTH SERVICES
[2021-10-04] MEDS: SERTRALINE 100 MG TAB PO SCH (09:01)
[2021-10-04] MEDS: ASPIRIN 325 MG TAB PO SCH (09:01)
== END 2021-10-04 12:11 | disposition home health service (06) ==
LOC: OR 05:40 → 4SSUR 08:43 → OR 10-03 08:12 → 4SSUR 10-03 08:12
PROVIDERS: ADMIT Orthopaedic Surgery; ATTEND Orthopaedic Surgery
DX: M16.12 Unilateral primary osteoarthritis, left hip (principal); I10 Essential (primary) hypertension; R00.2 Palpitations; F32.A Depression, unspecified; E78.2 Mixed hyperlipidemia; M41.9 Scoliosis, unspecified; R45.0 Nervousness; I95.2 Hypotension due to drugs; R51.9 Headache, unspecified; R26.81 Unsteadiness on feet; Z97.3 Presence of spectacles and contact lenses; K22.70 Barrett's esophagus without dysplasia; Z79.82 Long term (current) use of aspirin; Z98.1 Arthrodesis status; Z98.84 Bariatric surgery status; Z90.49 Acquired absence of other specified parts of digestive tract; Z90.710 Acquired absence of both cervix and uterus; Z98.890 Other specified postprocedural states; Z83.3 Family history of diabetes mellitus; Z82.49 Family history of ischemic heart disease and other diseases of the circulatory system; F17.200 Nicotine dependence, unspecified, uncomplicated; K58.9 Irritable bowel syndrome, unspecified; K21.9 Gastro-esophageal reflux disease without esophagitis; D64.9 Anemia, unspecified; Z87.442 Personal history of urinary calculi; Z87.19 Personal history of other diseases of the digestive system; M10.9 Gout, unspecified; F41.9 Anxiety disorder, unspecified; I25.10 Atherosclerotic heart disease of native coronary artery without angina pectoris; M54.50 Low back pain, unspecified; Z80.3 Family history of malignant neoplasm of breast; Z80.0 Family history of malignant neoplasm of digestive organs; Z79.891 Long term (current) use of opiate analgesic; Z79.899 Other long term (current) drug therapy; Z88.2 Allergy status to sulfonamides; Z88.8 Allergy status to other drugs, medicaments and biological substances
CPT/HCPCS: 97116; 97161; 86900; 86901; 80048; 84443; 85025; 86850; 88300; 73501; 27130; G0378 ×2; C1776; J2250; J1100; J2710; J0690 ×2; J2405; J3010; J1170 ×2; J2795; J1885 ×3; J2370; J0330; J2704

== ENCOUNTER → 2022-08-27 | Outpatient (CLI) | payer MEDICARE ==
[2022-08-27 16:40] LABS: INR 0.9 (<1.2); Partial Thromboplastin Time 22.3 sec (22.0-30.0)
--- NOTE | 2022-08-27 22:35 | XR ---
EXAMINATION TYPE: XR chest 2V DATE OF EXAM: 08/27/2022 COMPARISON: 12/09/2011 HISTORY: 61-year-old female presurgical evaluation TECHNIQUE: Frontal and lateral views FINDINGS: Heart upper limits of normal in size. Mild atherosclerotic arch calcifications. Bony vasculature with in normal limits. ACDF hardware. No consolidation or pleural effusion. IMPRESSION: No acute cardiopulmonary process.
[2022-08-28 01:57] LABS: HCT 35.8 % (37.2-46.3); HGB 12.9 g/dL (12.0-15.0); MCH 33.2 pg (27.0-32.0); Mean Platelet Volume 10.8 fL (9.5-12.2); NRBC Per 100 WBC 0 /100 WBCS (0.0-0.0); Platelet Count 238 X 10*3/uL (140-440); RBC 3.89 X 10*6/uL (4.10-5.20); RDW 14.9 % (11.5-14.5); WBC 5.94 X 10*3/uL (4.50-10.00)
[2022-08-28 02:27] LABS: BUN/Creat Ratio 17.11 Ratio (12.00-20.00); Blood Urea Nitrogen 15.4 mg/dL (9.0-27.0); Calcium 9.3 mg/dL (8.7-10.3); Potassium 4.2 mmol/L (3.5-5.5)
[2022-08-28 03:44] LABS: Appearance,Urine Turbid (Clear); Bacteria,Urine None Seen /HPF (None Seen); Bilirubin,Urine Negative (Negative); Blood,Urine Negative (Negative); Calcium Oxalate Crystals,Urine Present /LPF (None Seen); Color,Urine Dark Yellow (Yellow); Ketones,Urine Trace mg/dL (Negative); Nitrite,Urine Negative (Negative); PH, Urine 5.5 (5.0-8.0); Specific Gravity,Urine 1.027 (1.001-1.030)
== END | disposition home or self-care (01) ==
LOC: LABPAT 14:53
PROVIDERS: ATTEND Orthopaedic Surgery Orthopaedic Surgery of the Spine
DX: Z01.812 Encounter for preprocedural laboratory examination (principal); M43.10 Spondylolisthesis, site unspecified; M48.00 Spinal stenosis, site unspecified; R00.1 Bradycardia, unspecified
CPT/HCPCS: 36415; 71046; 80048; 81001; 85027; 85610; 85730; 87070; 93005

== ENCOUNTER 2022-09-05 07:29 | Inpatient (IN) | payer MEDICARE ==
[2022-08-31 11:28] VITALS: BMI 34.5
[2022-09-05] MEDS ORDERED: HYDROmorphone 0.5 MG/0.5 ML SYRINGE IVP PRN ×2 (07:43→12:59)
[2022-09-05] MEDS ORDERED: droPERidol 5 MG/2 ML VIAL IVP ONE (07:43)
[2022-09-05] MEDS ORDERED: ONDANSETRON 4 MG/2 ML VIAL IVP ONE (07:43)
[2022-09-05] MEDS ORDERED: LIDOCAINE 1% (10MG/ML) FOR IV START INTRADERMA PRN (07:43)
[2022-09-05] MEDS ORDERED: MIDAZOLAM 2 MG/2 ML VIAL IVP ONE (08:22)
[2022-09-05] MEDS ORDERED: ePHEDrine 50 MG/ML 1 ML VIAL ONE (08:24)
[2022-09-05] MEDS ORDERED: NEOSTIGMINE 1 MG/ML 10 ML VIAL ONE (08:24)
[2022-09-05] MEDS ORDERED: HYDROmorphone (PF) 1 MG/ML ONE (08:24)
[2022-09-05] MEDS ORDERED: fentaNYL (PF) 50 MCG/ML 2 ML AMP ONE (08:24)
[2022-09-05] MEDS ORDERED: KETAMINE 10 MG/ML 20 ML VIAL ONE (08:24)
[2022-09-05] MEDS ORDERED: ROCURONIUM 10 MG/ML (5 ML VIAL) IV ONE (08:24)
[2022-09-05] MEDS ORDERED: GLYCOPYRROLATE 0.2 MG/ML 2 ML VIAL ONE (08:24)
[2022-09-05] MEDS ORDERED: MIDAZOLAM 2 MG/2 ML VIAL ONE (08:24)
[2022-09-05] MEDS ORDERED: PHENYLEPHRINE-0.9% NACL SYG 1,000 MCG/10 ML SYRINGE ONE (08:24)
[2022-09-05] MEDS ORDERED: SUCCINYLCHOLINE CHLORIDE 200 MG/10 ML VIAL IV ONE (08:24)
[2022-09-05] MEDS ORDERED: LIDOCAINE 2% INJ 20 MG/ML (2 ML VIAL) ONE (08:24)
[2022-09-05] MEDS ORDERED: PROPOFOL 10 MG/ML 20 ML VIAL IV ONE (08:24)
[2022-09-05] MEDS: LACTATED RINGERS 1,000 ML IV SCH (08:25)
[2022-09-05] MEDS ORDERED: THROMBIN (BOVINE) 5,000 UNIT VIAL TOPICAL ONE (08:28)
[2022-09-05] MEDS ORDERED: ceFAZolin 1,000 MG in SODIUM CHLORIDE 0.9% 1,000 ML IRRIGATION ONE (08:28)
[2022-09-05] MEDS ORDERED: GELATIN SPONGE,ABSORB (LARGE) 1 EACH SPONGE TOPICAL ONE (08:28)
[2022-09-05] MEDS ORDERED: LIDOCAINE 0.5%-EPI 1:200,000 50 ML VIAL SQ ONE (08:28)
[2022-09-05] MEDS ORDERED: LACTATED RINGERS 1,000 ML IV ONE ×2 (10:26→13:42)
[2022-09-05] MEDS ORDERED: BENZOCAINE/MENTHOL LOZENG 1 EACH LOZENGE MUCOUS MEM PRN (12:59)
[2022-09-05] MEDS ORDERED: MAGNESIUM HYDROXIDE 2,400 MG/10 ML CUP PO PRN (12:59)
[2022-09-05] MEDS ORDERED: ONDANSETRON 4 MG/2 ML VIAL IVP PRN (13:00)
[2022-09-05] MEDS ORDERED: SENNOSIDES-DOCUSATE SODIUM 1 EACH TAB PO PRN (13:00)
--- NOTE | 2022-09-05 13:08 | P.OP ---
Date of Procedure: 09/05/22 Preoperative Diagnosis: Spondylolisthesis L4 5, foraminal stenosis of L4 5 L5-S1, degenerative disc disease L4 5 L5-S1, lower extremity radiculopathy, low back pain, facet arthrosis L4 5 L5-S1 Postoperative Diagnosis: Same Anesthesia: GETA Pathology: none sent Condition: stable Disposition: PACU Description of Procedure: DESCRIPTION OF PROCEDURE(S): BRIEF OPERATIVE NOTE Preoperative Diagnosis: Spondylolisthesis L4 5, foraminal stenosis of L4 5 L5- S1, degenerative disc disease L4 5 L5-S1, lower extremity radiculopathy, low back pain, facet arthrosis L4 5 L5-S1 Postoperative Diagnosis: Same Procedure: Laminectomy and decompression L4 5 L5-S1 Computer CT navigation aided Minimally invasive Posterior lateral decompression and facet fusion L4 5 L5-S1 Minimally invasive Transforaminal lumbar interbody fusion for a 360 fusion at L4 5 L5-S1 Discectomy for decompression L4 5 L5-S1 Placement of interbody graft L4 5 L5-S1 Use of computer navigation for fusion Local autogenous bone grafting Aspiration of bone marrow from the vertebral body pedicle of L4 on the right Use of bone graft extenders Surgeon: Dr. Connell Kelp Cutter: Jonnathan MAK who is present throughout the entire the case persistence during positioning, dissection, exposure, visualization, and all crucial elements of the case as well as closure. Anesthesia: General anesthesia per Estimated blood loss: Approximately 450 mL, with approximately 175 given back through Cell Saver Complications: None apparent Components implanted: K2M minimally invasive [place] pedicle screw system withscrews measuring 6.5 mm in diameter to rods one [place] interbody cage and a expandable Mirus cage with 10 mL of osteo amp bio4 bone graft substitute and 30 mL of the BX bone fibers to supplement the local autogenous bone graft and bone marrow aspirate Disposition: To recovery room in good stable condition. OPERATIVE INDICATIONS The patient has had severe issues at their lower extremity in her lower back over the past several years with significant worsening over the past several months. Over the past few months the patient had pain at their back and their lower extremities. The patient is having severe radicular symptoms at their low er extremity with weakness. The patient is having significant pain in their back. They are unable to obtain any comfort. We did aggressive conservative treatment with medications therapy and interventional pain management however thery were not having any relief. The patient also showed evidence of a listhesis with some dynamic instability. Her imaging correlated with her back and lower extremity symptoms. The patient has been through conservative treatment. We discussed various treatment options including surgery, and the patient wishes to proceed with surgery We discussed the risk, patient's alternatives and benefits of surgery including but not limited to, risk of bleeding risk of infection, risk of need for further surgery, risk of decreased, loss of motion, muscle function, malunion nonunion, hardware failure, nerve damage, paralysis, heart attack, blindness and . They understood issues with the current pandemic and the possibility of exposure. OPERATIVE SUMMARY After discussing all the risks, patient alternatives and benefits at length, the patient elected to proceed with surgical intervention, signed informed consent, and presented for their procedure. The patient was seen and examined in the preoperative holding area and the surgical site was marked. The patient was given antibiotics and brought to the operating room. The patient was sedated and intubated by anesthesia in standard fashion. The patient was positioned on to the operating room table in a prone position on the appropriate frame which was well-padded and well molded. We were careful to pad any bony prominences and pressure points. We were careful to maintain the patient's cervical spine and good neutral alignment and position throughout. The patient was prepped and draped in a normal standard fashion. An appropriate timeout and keystone protocol performed. We were able to proceed with the surgery. The local wound area was infiltrated with local anesthetic. Over the right iliac crest I was able to make small stab incisions and establish a guidepin screw fixation to the iliac crest 2. I was able place the computer referencing device over the guidepins to establish an appropriate reference point for the Ziem CT navigation. We then were able to place patient in an appropriate drape and do a navigation spin for visualization and 3-D reconstruction of the lumbar spine. I was able utilize C-arm guidance and navigation to establish appropriate position over the pedicles bilaterally at the appropriate levels at L4-L5 and S1 . With the appropriate levels confirmed was able to make small incisions over the appropriate pedicle sites bilaterally. Utilizing the computer navigation device I was able to establish bony landmarks at the right iliac crest for a bony reference point for the navigation device. I was able to establish a Jamshidi needle over the lateral aspect of the pedicle and advanced the trocar into the pedicle being careful not to breech superiorly inferiorly medially or laterally using computer navigation device. Position was confirmed regularly with AP and lateral images on C-arm and with the computer navigation device at the appropriate levels bilaterally. I was able to establish the trocar into the pedicle appropriately into the posterior aspect of the vertebral body bilaterally at the appropriate levels. This was done at each of the pedicle positions and each of the vertebrae. At the superior vertebrae of L4 on the right I was able to take approximately 15 mL of bone aspiration for use later in the case to supplement the allograft and autograft bone. I was able place the guidewire into the trocar and into the vertebral body appropriately under C-arm guidance. Dissection was taken down over the wire to the appropriate starting position for the screw placed. The appropriate length screw was chosen, threaded over the guidewire and screwed appropriately into the pedicle and vertebral body under C-arm guidance in exc ellent alignment and position with good bony purchase. This is done at each of the screw sites at the appropriate levels at L4-L5 and S1 bilaterally. With the screws intact I extended the incision to connect the screw hole sites on the most symptomatic side on the right. I dissected down to establish access over the pars and lamina to the base of the spinous process. I was able to expose the facet joint. The capsule the facet was taken down and showed some facet arthrosis at the joint. I was able to use a combination of curettes and Kerrison rongeurs and a high-speed drill to take down the facet joint and do a facetectomy. There is evidence of severe bilateral facet arthrosis at both L4 5 and L5-S1 which was taken down. I was able get excellent foraminal decompression and central decompression with undermining across midline to perform a laminectomy centrally and contralaterally. I was able get good central decompression. The ligamentum flavum was taken down to further decom press centrally and at bilateral neural foramen. I was able to expose the disc space and visualize the traversing nerve root. Note was made of some disc protrusion and disc herniation that was abutting the traversing nerve root at the level causing further compression of the nerve root. I was able to establish a annulotomy at the appropriate level protecting soft tissue and neural structures. Note was made of some disc desiccation at the disc. I performed a complete discectomy with accommodation of curettes and rasps and scrapers. I was able get good endplate preparation at the disc space. I sized for the appropriate size interbody spacer protecting the soft tissue and neural structures. The wound was copiously irrigated and suctioned dry. There is no evidence of any dural tear or leak. I was able to pack the disc space with local autogenous bone graft as well as a small amount of bone graft which was also placed into the interbody cage itself. Protecting the soft tissue structures and neural structures I was able place the interbody cage in good alignment and good position with good fit and fill at the interbody space. Position was confirmed with C-arm guidance. This was done first at L5-S1 and then at L4 5. I did use an expandable cage at L4 5 and she had tolerance height disc at that level. Good hemostasis maintained. There is no evidence of any dural tear or leak. The wound was irrigated and suctioned dry. With the hardware intact, intraoperative C-arm imaging was again taken which showed good alignment and position of the hardware at the appropriate levels at L4-L5 and S1. We were then able to measure, contour and place the rods and appropriate hardware bilaterally. I was able to place capcrews, tighten them down, and torque them with the torque screwdriver appropriately. With this intact I was able to place the local autogenous bone graft with additional bone graft enhancer as necessary into the posterior lateral gutters over the decortic ated transverse processes and facet joints on the contralateral side. The remainder of the bone graft was placed over the facet joint on the contralateral side on the left after taking down the facet joint capsule. With the bone graft intact, a stable construct, and good decompression at the appropriate levels at L4-L5 and S1, we were able to proceed with closure. Good hemostasis was maintained. There is no evidence of dural tear or leak. The fascia was closed for a watertight closure. he subcuticular tissue was closed with absorbable suture. The wound was cleaned and dried and dressed with the appropriate dressing. The drapes were broken down. The patient was gently rolled back onto their hospital bed being careful to maintain their cervical spine and good neutral alignment and position. They were woken up by anesthesia, extubated, and brought to the recovery room in good stable condition. The patient will be admitted to the hospital for appropriate postoperative care, medical management and monitoring. We will continue to follow them closely about the postoperative course.
--- NOTE | 2022-09-05 13:41 | FL ---
Intraoperative/procedural fluoroscopic services were provided. Total fluoroscopy time is 25 seconds p aper images scanned. Please see the operative/procedural note for further details. DAP: [id number]
[2022-09-05] MEDS ORDERED: HYDROmorphone 0.5 MG/0.5 ML SYRINGE IVP ONE (13:42)
[2022-09-05] MEDS: SODIUM CHLORIDE 0.9% 1,000 ML IV SCH (17:16)
[2022-09-05] MEDS: HYDROmorphone 1 MG/ML 1 ML SYRINGE IVP PRN ×2 (17:24→21:34)
[2022-09-05] MEDS: CYCLOBENZAPRINE 10 MG TAB PO PRN ×2 (17:30→23:00)
[2022-09-05] MEDS: HYDROcodone/APAP 5-325MG 1 EACH TAB PO PRN ×2 (19:49→23:00)
[2022-09-06] MEDS: HYDROmorphone 1 MG/ML 1 ML SYRINGE IVP PRN ×3 (01:19→20:51)
[2022-09-06] MEDS: SODIUM CHLORIDE 0.9% 1,000 ML IV SCH ×2 (02:37→17:52)
[2022-09-06] MEDS: HYDROcodone/APAP 5-325MG 1 EACH TAB PO PRN ×2 (03:27→06:41)
[2022-09-06] MEDS: LACTATED RINGERS 1,000 ML IV SCH (05:52)
[2022-09-06] MEDS ORDERED: ONDANSETRON ODT 4 MG TAB PO PRN (09:55)
[2022-09-06] MEDS ORDERED: SENNOSIDES-DOCUSATE SODIUM 1 EACH TAB PO PRN (09:55)
--- NOTE | 2022-09-06 09:58 | P.PN ---
Progress Note - Text Progress Note Date: 09/06/22 Postoperative day #1 Patient is seen and examined today at bedside. The patient has some pain around the surgical site as expected. Pain is being controlled with medication. She normally takes 7.5 mg Wyatt at home and we will increase to this. She had nausea this morning after eating eggs. She is voiding freely. She is sitting up in a chair. Physical Exam Afebrile with stable vital signs. Her blood pressure was low when she sat up and it seems to be normalizing. She had a very mild temperature to 100.5. Abdomen is soft nontender. Chest has good excursion deep and space expiration The incision site is clean dry and intact. No erythema there is no purulence. Extremities have not had neurologic change from prior to surgery. She has sustained dorsal flexion plantar flexion and EHL intact Calves and thighs were soft nontender without evidence of DVT. Assessment/Plan Postoperative day 1 status post minimally invasive decompression fusion L4 5 L5- S1 for spondylolisthesis with stenosis and lower extremity radiculopathy Patient is progressing as expected from the surgery. She had nausea this morning and we'll see if this normalizes. She has some history of nausea at home and she had some eggs which she threw up. She says she feels like her stomach is settling now. She has been able to void on her own and is up in a chair. That is encouraging for her. She denies any headaches. She normally takes Wyatt 7.5 long with a number of other medications at home and we can increase the Wyatt 5 some to 7.5 today. We will continue to increase the patient's mobilization with therapy. We will continue pain control with oral or IV medications. We'll continue to follow patient closely.
[2022-09-06 11:03] LABS: HCT 29.7 % (37.2-46.3); HGB 9.8 g/dL (12.0-15.0); MCH 30.4 pg (27.0-32.0); MCV 92.2 fL (80.0-97.0); Mean Platelet Volume 10.9 fL (9.5-12.2); NRBC Per 100 WBC 0 /100 WBCS (0.0-0.0); Platelet Count 158 X 10*3/uL (140-440); RBC 3.22 X 10*6/uL (4.10-5.20); RDW 14.8 % (11.5-14.5); WBC 9.87 X 10*3/uL (4.50-10.00)
[2022-09-06 11:10] LABS: Anion Gap 8.7 mmol/L (10.00-18.00); BUN/Creat Ratio 13.78 Ratio (12.00-20.00); Blood Urea Nitrogen 12.4 mg/dL (9.0-27.0); Carbon Dioxide 26.3 mmol/L (20.0-27.5); Potassium 4.1 mmol/L (3.5-5.5)
[2022-09-06 11:37] LABS: Basophils # (M) 0 X 10*3/uL (0.00-0.10); Eosinophils # (M) 0.89 X 10*3/uL (0.04-0.35); Lymphocytes # (M) 0.39 X 10*3/uL (0.90-5.00); Neutrophils # (M) 8.39 X 10*3/uL (2.00-8.90); Neutrophils % (M) 85 %; RBC Morphology NORMAL
[2022-09-06] MEDS: HYDROcodone/APAP 7.5-325MG 1 EACH TAB PO PRN ×2 (12:05→17:50)
[2022-09-06] MEDS: SENNOSIDES-DOCUSATE SODIUM 1 EACH TAB PO SCH (12:07)
--- NOTE | 2022-09-06 13:38 | P.CONS ---
History of Present Illness - Reason for Consult Consult date: 09/06/22 medical management Requesting physician: Sarah Connell - History of Present Illness This is a 61 year old female with medical history of gerd, hypertension, hyperlipidemia, Coronary artery disease, former smoker. Presents for an elective decompression and fusion of L4 5 L5-S1 due to spondylisthesis with stenosis and lower extremity radiculopathy. Patient is evaluted on the medical floor postoperative day #1. Patient is complaining of significant pain to the lower back 8/10 does report the IV pain medication has brought the pain back down to a 5/10. Patient has only used the incentive spirometer a few times she reports. Today she is having fever t max of 100.1 this is most likely a postoperative atelectasis and chest xray was done which does show atelectic changes although the final report is not back yet. Patient is encouraged to use the IS 10 x an hour while awake. A urinalysis will also be checked. Patient is hypotensive with BP 88/51 overnight and currently 90/52 patient will be given a fluid bolus and continue on IV fluids at this time. Patient does not have an elevated white cou nt, electrolytes and kidney function are essentially unremarkable. Home medication amlodipine and losartan are currently on hold at this time. Patient denies chest pain, denies shortness of breath. No nausea, vomiting or diarrhea noted. Patient denies any lower extremity numbness or tingling. Patient is passing gas. Indwelling catheter in place. Recommend to monitor blood pressure closely. REVIEW OF SYSTEMS: CONSTITUTIONAL: Reports fever and malaise HEENT: No recent visual problems or hearing problems. Denied any sore throat. CARDIOVASCULAR: No chest pain, orthopnea, PND, no palpitations, no syncope. PULMONARY: No shortness of breath, no cough, no hemoptysis. GASTROINTESTINAL: No diarrhea, no nausea, no vomiting, no abdominal pain. NEUROLOGICAL: No headaches, no weakness, no numbness. HEMATOLOGICAL: Denies any bleeding or petechiae. GENITOURINARY: Denies any burning micturition, frequency, or urgency. MUSCULOSKELETAL/RHEUMATOLOGICAL: Reports back pain dull ache 10/29. ENDOCRINE: Denies any polyuria or polydipsia. The rest of the 14-point review of systems is negative.' PHYSICAL EXAMINATION: GENERAL: The patient is alert and oriented x3, not in any acute distress. Well developed, well nourished. HEENT: Pupils are round and equally reacting to light. EOMI. No scleral icterus. No conjunctival pallor. Normocephalic, atraumatic. No pharyngeal erythema. No thyromegaly. CARDIOVASCULAR: S1 and S2 present. No murmurs, rubs, or gallops. PULMONARY: Chest is clear to auscultation, no wheezing or crackles. ABDOMEN: Soft, nontender, nondistended, normoactive bowel sounds. No palpable organomegaly. MUSCULOSKELETAL: No joint swelling or deformity. Post surgical dressing intact. Deferred to primary services. EXTREMITIES: No cyanosis, clubbing, or pedal edema. NEUROLOGICAL: Gross neurological examination did not reveal any focal deficits. SKIN: No rashes. Assessment Hypotension postoperative patient has history of hypertension and recommend to hold amlodipine and losartan at this time. Patient will be given a fluid bolus and continue on IV fluids normal saline. Fever likely due to postoperative atelectasis patient is encouraged to use incentive spirometer 10 x an hour, chest xray and urinalysis are ordered Postoperative day 1 elective decompression and fusion L4 5 and L5-S1 due to spondylisthiesis and stenosis with lower extremity radiculopathy History hyperlipidemia History gastroesophageal reflux disease Coronary artery disease History of IBS/Diverticulitis Degenerative disc disease Former Smoker GI prophylaxis DVT prophylaxis as per primary Full Code Plan Continue IV fluids and give fluid bolus Monitor blood pressure Hold antihypertensives for now Continue to encourage incentive spirometer Chest xray and UA pending Thank you for this consultation The impression and plan of care has been dictated by Sri Dc, Nurse Practitioner as directed. Dr. David MD I have performed a history and physical examination and medical decision making of this patient, discussed the same with the dictator, and agree with the dictators assessment and plan as written, documented as a scribe. Based on total visit time, I have performed more than 50% of this visit. Past Medical History Past Medical History: Coronary Artery Disease (CAD), Eye Disorder, GERD/Reflux, Hyperlipidemia, Hypertension, Musculoskeletal Disorder, Osteoarthritis (OA), Pneumonia Additional Past Medical History / Comment(s): Lower lumbar pain, Degenerative Disc Disease. Bilateral Cataracts. Hx migraines in the past. Occasional palpitations, "mild CAD". Hiatal hernia, hx ulcer, hx colitis, hx IBS, hx diverticulitis.Hx Pneumonia 08/09/2022. History of Any Multi-Drug Resistant Organisms: None Reported Past Surgical History: Appendectomy, Bariatric Surgery, Cholecystectomy, Heart Catheterization, Hysterectomy, Orthopedic Surgery, Tonsillectomy Additional Past Surgical History / Comment(s): Lap band placed and removed, gastric sleeve, left hand surgery X2, right great toe surgery. Past Anesthesia/Blood Transfusion Reactions: No Reported Reaction Past Psychological History: Anxiety, Depression Smoking Status: Former smoker Past Alcohol Use History: Occasional Additional Past Alcohol Use History / Comment(s): Quit smoking early August 2022, smokes 1/4 ppd for over 30 yrs. Past Drug Use History: None Reported - Past Family History Mother Family Medical History: Cancer Additional Family Medical History / Comment(s): Breast cancer. Father Family Medical History: Cancer Additional Family Medical History / Comment(s): Colon Cancer. Medications and Allergies Home Medications Medication Instructions Recorded Confirmed Type Aspirin [Adult Low Dose Aspirin EC] 81 mg PO HS 01/13/21 08/31/22 History Cholecalciferol (Vitamin D3) 125 mcg PO DAILY 01/13/21 08/31/22 History [Vitamin D3 (125 MCG = 5,000 IU)] Esomeprazole Magnesium [NexIUM 40 mg PO HS 01/13/21 08/31/22 History 24Hr] Losartan [Cozaar] 50 mg PO HS 01/13/21 08/31/22 History Sertraline HCl [Zoloft] 200 mg PO HS 01/13/21 08/31/22 History Sucralfate [Carafate] 1 gm PO HS 01/13/21 08/31/22 History amLODIPine [Norvasc] 5 mg PO HS 01/13/21 08/31/22 History traZODone HCL 100 mg PO HS 01/13/21 08/31/22 History Metoprolol Tartrate [Lopressor] 12.5 mg PO BID 05/30/21 08/31/22 History Rosuvastatin Calcium [Crestor] 40 mg PO HS 05/30/21 08/31/22 History HYDROcodone/APAP 7.5-325MG [[place] 1 - 2 tab PO Q6HR PRN #32 tab 10/02/21 08/31/22 Rx 7.5-325] Ondansetron Odt [Zofran Odt] 4 mg PO Q8HR PRN #14 tab 10/02/21 08/31/22 Rx Sennosides-Docusate Sodium 1 tab PO BID PRN 08/31/22 08/31/22 History [Senokot-S] Allergies Allergy/AdvReac Type Severity Reaction Status Date / Time prochlorperazine Allergy ABN. Verified 09/05/22 07:52 [From Compazine] FLIGHT/FIGHT RESPONSE sulfamethoxazole Allergy Rash/Hives Verified 09/05/22 07:52 [From Bactrim] trimethoprim [From Bactrim] Allergy Rash/Hives Verified 09/05/22 07:52 Physical Exam Vitals: Vital Signs Temp Pulse Resp BP Pulse Ox 09/06/22 07:02 99.8 F H 95 16 90/52 95 09/06/22 01:55 100.1 F H 79 18 88/51 93 L 09/05/22 19:55 99.4 F 76 18 93/57 97 09/05/22 17:35 77 109/67 97 09/05/22 16:53 77 108/67 96 09/05/22 16:38 76 113/71 97 09/05/22 16:23 72 108/67 98 09/05/22 15:53 66 115/62 97 09/05/22 15:38 70 101/65 89 L 09/05/22 15:08 75 106/66 82 L 09/05/22 14:54 76 109/66 94 L 09/05/22 14:36 68 16 112/65 96 09/05/22 14:10 75 16 101/62 94 L 09/05/22 13:55 65 16 92/54 94 L 09/05/22 13:40 69 20 115/71 93 L 09/05/22 13:25 75 16 98/54 94 L 09/05/22 13:09 97.7 F 72 12 107/59 93 L Intake and Output 09/05/22 09/06/22 09/06/22 22:59 06:59 14:59 Intake Total 50 410 Output Total 900 375 Balance -850 35 Intake: Intake, IV Titration 50 50 Amount ceFAZolin 2 gm In Sodium 50 50 Chloride 0.9% 50 ml @ 100 mls/hr IVPB Q8HR [facility] Rx# :[id number] Oral 360 Output: Urine 900 375 Uretheral (Gallo) 900 125 Other: Voiding Method Indwelling Catheter # Voids 1 Results CBC & Chem 7: 09/06/22 06:47 09/06/22 06:47
--- NOTE | 2022-09-06 15:52 | XR ---
EXAMINATION TYPE: XR chest 2V DATE OF EXAM: 09/06/2022 COMPARISON: 08/27/2022 HISTORY: 61-year-old female with fever TECHNIQUE: AP and lateral views FINDINGS: Heart upper limits of normal in size. Low lung volumes partially obscuring the heart margins. Aorta a nd pulmonary vasculature within normal limits. There is focal right perihilar and left basilar opacit y. At the left base, somewhat strandy configuration suggesting atelectasis. No pleural effusion. Chol ecystectomy clips. IMPRESSION: New focal right perihilar and left basilar opacities. Left basilar opacity probably atelectasis. Righ t hilar opacity could represent pneumonia.
[2022-09-06] MEDS: CYCLOBENZAPRINE 10 MG TAB PO PRN (20:23)
[2022-09-06] MEDS ORDERED: amLODIPine 5 MG TAB PO SCH (21:00)
[2022-09-06] MEDS ORDERED: LOSARTAN 50 MG TAB PO SCH (21:00)
[2022-09-06] MEDS: METOPROLOL TARTRATE 12.5 MG TAB PO SCH (21:57)
[2022-09-06] MEDS: PANTOPRAZOLE 40 MG TABLET PO SCH (21:57)
[2022-09-06] MEDS: ATORVASTATIN 80 MG TAB PO SCH (21:57)
[2022-09-06] MEDS: SUCRALFATE 1 GM TAB PO SCH (21:57)
[2022-09-06] MEDS: ASPIRIN 81 MG PO SCH (21:57)
[2022-09-06] MEDS: traZODone HCL 100 MG TAB PO SCH (21:57)
[2022-09-06] MEDS: SERTRALINE 100 MG TAB PO SCH (21:57)
[2022-09-07] MEDS: LACTATED RINGERS 1,000 ML IV SCH (06:41)
[2022-09-07] MEDS: HYDROcodone/APAP 7.5-325MG 1 EACH TAB PO PRN ×3 (06:44→19:50)
[2022-09-07] MEDS: SODIUM CHLORIDE 0.9% 1,000 ML IV SCH ×3 (06:44→19:46)
--- NOTE | 2022-09-07 08:47 | P.PN ---
Progress Note - Text Progress Note Date: 09/07/22 Orthopedic Spine History of present illness: Patient is a pleasant 61-year-old female who is seen and examined at the bedside following posterior lateral decompression and fusion performed Saturday. Patient states they are doing ok post operatively. She does feel she has had some improvement as compared to yesterday but does continue to have significant pain at the surgical sites at her lumbar spine. She has been able to increase her mobility with transfers to a bedside chair in the restroom. She is working with physical therapy. She also continues to have some nausea and vomited yesterday. Her nausea has been better controlled. Currently does not complain of fever or chills. Patient states pain has been adequately controlled. Patient is eating and voiding freely without difficulty. Patient feels that she continues to improve she may be ready for discharge home tomorrow. She does have a walker in the room to keeper helper in ambulation. She does have a walker at home. She does feel her lower extremity leg pain has post operatively improved and is currently controlled. She continues to be seeing Andres by medicine for other medical diagnoses. She was experiencing post operative hypotension and fever. Patient not currently complaining of fever however her temperature remains elevated at 100.4. Her blood pressure has improved. Patient will need to be cleared by medicine prior to discharge home tomorrow. Physical Exam Lumbar Fusion: Status post surgical day number Patient is awake, alert, and oriented 3 Vital signs stable Good chest excursion with deep inspiration and expiration Dorsiflexion, plantarflexion, and extensor hallucis longus positive sustained bilaterally No signs or symptoms of DVT; no calf pain; pneumatic cuffs not currently intact bilateral lower extremities Optifoam dressings are dry and intact over the lumbar spine and right iliac crest; no erythema, purulence, or signs of infection Small area of dried blood over the dressing over the left lumbar surgical incision site Neurovascularly intact bilaterally lower extremities Assessment: Status post L4-5 and L5-S1 minimally invasive posterior lateral decompression and fusion with transforaminal lumbar interbody fusion Low back pain L4-5 spondylolisthesis L4-5 and L5-S1 degenerative disc disease Lower extremity radiculopathy L4-5 and L5-S1 foraminal stenosis L4-5 and L5-S1 facet arthropathy Postoperative fever; currently 100.4 Hyperlipidemia History of IBS/diverticulitis Coronary artery disease Plan: 1. Ambulate as tolerated; work with Physical Therapy to increase mobilization 2. Continue pain control with IV and oral medications; will plan to begin weaning the patient off of IV narcotic medication in anticipation for discharge home in the next 1-2 days MAPS has been reviewed today. An "Opiod Start Talking" Form has been signed and placed in the patient's chart. A prescription has been written for hydrocodone 7.5 mg/325 mg, take 1-2 tabs every 6 hours as needed for pain, dispensed #56. She is given prescription for cyclobenzaprine 10 mg 1 tab 3 times a day as needed for muscle spasm, dispensed #60. She is also given a prescription for Zofran 4 mg as needed for nausea. Medications are sent to the [facility] pharmacy located within [facility] per request of the patient. 3. Dressings to remain intact with Optifoam; patient may shower with dressings intact 4. Medical management can continue to manage patient for patient's other medical diagnoses including postoperative fever and hypotension 5. We will continue to follow the patient closely; patient continues to have difficulty with mobilization and ambulation postoperatively but has continued to improve. She has been working with physical therapy and is progressing. She has been utilizing a walker. She continues to require IV and oral medications for pain control. I do not feel the patient is ready for discharge home. Patient will continue to remain in the hospital until her symptoms improve and her pain is better controlled. Also, she is being seen and examined by medicine and currently being treated for postoperative fever and hypotension. Patient will be cleared by medicine prior to discharge home. We will plan to have the patient be admitted to in patient status during her admission. Depending on her progress we patient may plan to be discharged home tomorrow, 09/08/2022 6. Patient can follow-up with Jonnathan Hayden PA-C or Dr. Brian Connell at [facility] in 2-3 weeks following discharge
[2022-09-07] MEDS: CHOLECALCIFEROL 125 MCG (5000 IU) TABLET PO SCH (09:34)
[2022-09-07] MEDS: METOPROLOL TARTRATE 12.5 MG TAB PO SCH ×2 (09:35→19:50)
[2022-09-07] MEDS: SENNOSIDES-DOCUSATE SODIUM 1 EACH TAB PO SCH (09:35)
[2022-09-07 11:50] LABS: African American GFR (CKD) >90 (>60 ml/min/1.73 sqM); Anion Gap 9 mmol/L; Blood Urea Nitrogen 15 mg/dL (7-17); Carbon Dioxide 22 mmol/L (22-30); Chloride 105 mmol/L (98-107); Glucose 77 mg/dL (74-99); Non-African American GFR(CKD) >90 (>60 ml/min/1.73 sqM); Potassium 3.6 mmol/L (3.5-5.1); Sodium 136 mmol/L (137-145)
[2022-09-07 11:58] LABS: Basophils % (A) 0 %; Eosinophils # (A) 0.6 k/uL (0-0.7); Eosinophils % (A) 8 %; HCT 31.9 % (34.0-46.0); HGB 10.5 gm/dL (11.4-16.0); Lymphocytes # (A) 0.9 k/uL (1.0-4.8); Lymphocytes % (A) 12 %; MCH 29.7 pg (25.0-35.0); MCHC 32.9 g/dL (31.0-37.0); MCV 90.2 fL (80.0-100.0); Mean Platelet Volume 8.3; Monocytes # (A) 0.5 k/uL (0-1.0); Monocytes % (A) 7 %; Neutrophils # (A) 5.5 k/uL (1.3-7.7); Neutrophils % (A) 71 %; RBC 3.54 m/uL (3.80-5.40); RDW 14.4 % (11.5-15.5); WBC 7.7 k/uL (3.8-10.6)
[2022-09-07 12:25] LABS: Platelet Count 179 k/uL (150-450)
[2022-09-07 14:01] LABS: Appearance,Urine Clear (Clear); Bacteria,Urine Rare /hpf; Bilirubin,Urine Negative (Negative); Blood,Urine Moderate (Negative); Color,Urine Yellow; Glucose,Urine (UA) Negative (Negative); Hyaline Casts,Urine 5 /lpf (0-2); Ketones,Urine 2+ (Negative); Leukocyte Esterase,Urine Negative (Negative); Mucus,Urine Few /hpf; Nitrite,Urine Negative (Negative); Protein,Urine 1+ (Negative); RBC,Urine 15 /hpf (0-5); Specific Gravity,Urine 1.029 (1.001-1.035); Squamous Epithelial Cell,Urine 1 /hpf (0-4); WBC,Urine 3 /hpf (0-5)
--- NOTE | 2022-09-07 17:07 | P.PN ---
Subjective Progress Note Date: 09/07/22 This is a 61 year old female with medical history of gerd, hypertension, hyperlipidemia, Coronary artery disease, former smoker. Presents for an elective decompression and fusion of L4 5 L5-S1 due to spondylisthesis with stenosis and lower extremity radiculopathy. Patient is evaluted on the medical floor p ostoperative day #1. Patient is complaining of significant pain to the lower back 8/10 does report the IV pain medication has brought the pain back down to a 5/10. Patient has only used the incentive spirometer a few times she reports. Today she is having fever t max of 100.1 this is most likely a postoperative atelectasis and chest xray was done which does show atelectic changes although the final report is not back yet. Patient is encouraged to use the IS 10 x an hour while awake. A urinalysis will also be checked. Patient is hypotensive with BP 88/51 overnight and currently 90/52 patient will be given a fluid bolus and continue on IV fluids at this time. Patient does not have an elevated white count, electrolytes and kidney function are essentially unremarkable. Home medication amlodipine and losartan are currently on hold at this time. Patient denies chest pain, denies shortness of breath. No nausea, vomiting or diarrhea noted. Patient denies any lower extremity numbness or tingling. Patient is passing gas. Indwelling catheter in place. Recommend to monitor blood pressure closely. 09/07/2022 Patient reports improvement in lower back pain was able to work with physical therapy and sitting up in chair. Patient is requiring 4L of oxygen via nasal cannula. Chest xray was done showing new focal right perihilar and left basilar opacities. Left basilar opacity probably atelectasis, right hilar opacity could represent pneumonia. Patient remains febrile with heart rate 100.4 today, and has been started on IV ceftriaxone. A urinalysis is done not suggestive of infection. Review of Systems Constitutional: Reports fatigue, Reports fever Cardiovascular: denied any chest pain, palpitations Gastrointestinal: denied any nausea, vomiting, diarrhea Pulmonary: Denied any shortness of breath cough Neurologic denied any new focal deficits All inpatient medications were reviewed and appropriate changes in these medications as dictated in the interval history and assessment and plan. PHYSICAL EXAMINATION: GENERAL: The patient is alert and oriented x3, not in any acute distress. Well developed, well nourished. HEENT: Pupils are round and equally reacting to light. EOMI. No scleral icterus. No conjunctival pallor. Normocephalic, atraumatic. No pharyngeal erythema. No th yromegaly. CARDIOVASCULAR: S1 and S2 present. No murmurs, rubs, or gallops. PULMONARY: Chest is clear to auscultation, no wheezing or crackles. Diminished. ABDOMEN: Soft, nontender, nondistended, normoactive bowel sounds. No palpable organomegaly. MUSCULOSKELETAL: No joint swelling or deformity. Post surgical dressing intact. Deferred to primary services. EXTREMITIES: No cyanosis, clubbing, or pedal edema. NEUROLOGICAL: Gross neurological examination did not reveal any focal deficits. SKIN: No rashes. Assessment Postoperative day 2 elective decompression and fusion L4 5 and L5-S1 Hypotension postoperative Fever likely postoperative atelectasis cannot rule out pneumonia awaiting pro calcitonin History hyperlipidemia History gastroesophageal reflux disease Coronary artery disease History of IBS/Diverticulitis Degenerative disc disease Former Smoker GI prophylaxis DVT prophylaxis as per primary Full Code Plan Continue IV fluids and continue to hold antihypertensives Started on IV ceftriaxone and procalcitonin level pending, ID on consultation Continue to encourage incentive spirometer Thank you for this consultation The impression and plan of care has been dictated by Sri Dc, Nurse Practitioner as directed. Dr. David MD I have performed a history and physical examination and medical decision making of this patient, discussed the same with the dictator, and agree with the dictators assessment and plan as written, documented as a scribe. Based on total visit time, I have performed more than 50% of this visit. Objective - Vital Signs Vital signs: Vital Signs Temp 98.3 F 09/07/22 14:00 Pulse 78 09/07/22 14:00 Resp 14 09/07/22 14:00 BP 116/73 09/07/22 14:00 Pulse Ox 92 L 09/07/22 14:00 FiO2 Intake & Output 09/06/22 09/07/22 09/07/22 18:59 06:59 18:59 Intake Total 20 Balance 20 Intake: IV 20 Invasive Line 2 20 Other: # Voids 2 1 2 # Bowel Movements 1 - Labs CBC & Chem 7: 09/07/22 10:32 09/07/22 10:32 Labs: Abnormal Lab Results - Last 24 Hours (Table) 0509/07/22 09/07/22 Range/Units 10:32 10:32 13:00 RBC 3.54 L (3.80-5.40) m/uL Hgb 10.5 L (11.4-16.0) gm/dL Hct 31.9 L (34.0-46.0) % Lymphocytes # 0.9 L (1.0-4.8) k/uL Sodium 136 L (137-145) mmol/L Calcium 8.0 L (8.4-10.2) mg/dL Urine Protein 1+ H (Negative) Urine Ketones 2+ H (Negative) Urine Blood Moderate H (Negative) Urine RBC 15 H (0-5) /hpf Urine Bacteria Rare H (None) /hpf Hyaline Casts 5 H (0-2) /lpf Urine Mucus Few H (None) /hpf Assessment and Plan Time with Patient: Less than 30
[2022-09-07] MEDS: AMPICILLIN-SULBACTAM 3 GM in SODIUM CHLORIDE 0.9% 100 ML IVPB SCH ×2 (17:48→23:28)
[2022-09-07] MEDS: CYCLOBENZAPRINE 10 MG TAB PO PRN (17:49)
[2022-09-07] MEDS: SUCRALFATE 1 GM TAB PO SCH (19:50)
[2022-09-07] MEDS: SERTRALINE 100 MG TAB PO SCH (19:50)
[2022-09-07] MEDS: PANTOPRAZOLE 40 MG TABLET PO SCH (19:50)
[2022-09-07] MEDS: ASPIRIN 81 MG PO SCH (19:50)
[2022-09-07] MEDS: ATORVASTATIN 80 MG TAB PO SCH (19:50)
[2022-09-07] MEDS: HYDROmorphone 1 MG/ML 1 ML SYRINGE IVP PRN (19:51)
[2022-09-07] MEDS: traZODone HCL 100 MG TAB PO SCH (19:51)
--- NOTE | 2022-09-07 22:08 | P.CONS ---
History of Present Illness - Reason for Consult Consult date: 09/07/22 Fever/pneumonia Requesting physician: Sri Dc - Chief Complaint Fever and shortness of breath x one day - History of Present Illness Patient is a 61-year-old female presenting to the hospital 09/05/2022 in this patient with a chronic back pain from degenerative disc disease patient is status postlaminectomy and decompression L4-5 L5-S1 along with discectomy and placement of interbody graft patient on admission to the hospital was afebrile however the patient started spiking fever postop day 1 has been running a fever 100.1 and did have fever 100.4 this morning patient also complaining of feeling nauseated and did have multiple episodes of vomiting since her surgery patient was not hypoxic or admission however she became hypoxic requiring supplemental oxygen after surgery and is currently on 4 L nasal cannula patient denies having any headache or URI symptoms but denies having chest pain has been complaining of shortness of breath also have a cough mild to moderate intensity not bringing up any sputum has been started she has been nausea and vomiting after surgery however seem to have improved afterwards denies any abdominal pain and no diarrhea and no urinary symptoms patient did have a normal white count kidney function has been normal urine has been negative influenza RSV and COVID testing was negative patient did have a chest x-ray completed yesterday afternoon which shows new focal right perihilar and left basilar opacity right hilar opacity could resent pneumonia patient was started on Rocephin infectious disease was consulted today for further management of antibiotic therapy Review of Systems Positive point and negatives has been mentioned in the HPI, complete review of systems was performed and all other systems are negative Past Medical History Past Medical History: Coronary Artery Disease (CAD), Eye Disorder, GERD/Reflux, Hyperlipidemia, Hypertension, Musculoskeletal Disorder, Osteoarthritis (OA), Pneumonia Additional Past Medical History / Comment(s): Lower lumbar pain, Degenerative Disc Disease. Bilateral Cataracts. Hx migraines in the past. Occasional palpitations, "mild CAD". Hiatal hernia, hx ulcer, hx colitis, hx IBS, hx diverticulitis.Hx Pneumonia 08/09/2022. History of Any Multi-Drug Resistant Organisms: None Reported Past Surgical History: Appendectomy, Bariatric Surgery, Cholecystectomy, Heart Catheterization, Hysterectomy, Orthopedic Surgery, Tonsillectomy Additional Past Surgical History / Comment(s): Lap band placed and removed, gastric sleeve, left hand surgery X2, right great toe surgery. Past Anesthesia/Blood Transfusion Reactions: No Reported Reaction Past Psychological History: Anxiety, Depression Smoking Status: Former smoker Past Alcohol Use History: Occasional Additional Past Alcohol Use History / Comment(s): Quit smoking early August 2022, smokes 1/4 ppd for over 30 yrs. Past Drug Use History: None Reported - Past Family History Mother Family Medical History: Cancer Additional Family Medical History / Comment(s): Breast cancer. Father Family Medical History: Cancer Additional Family Medical History / Comment(s): Colon Cancer. Medications and Allergies Home Medications Medication Instructions Recorded Confirmed Type Aspirin [Adult Low Dose Aspirin EC] 81 mg PO HS 01/13/21 08/31/22 History Cholecalciferol (Vitamin D3) 125 mcg PO DAILY 01/13/21 08/31/22 History [Vitamin D3 (125 MCG = 5,000 IU)] Esomeprazole Magnesium [NexIUM 40 mg PO HS 01/13/21 08/31/22 History 24Hr] Losartan [Cozaar] 50 mg PO HS 01/13/21 08/31/22 History Sertraline HCl [Zoloft] 200 mg PO HS 01/13/21 08/31/22 History Sucralfate [Carafate] 1 gm PO HS 01/13/21 08/31/22 History amLODIPine [Norvasc] 5 mg PO HS 01/13/21 08/31/22 History traZODone HCL 100 mg PO HS 01/13/21 08/31/22 History Metoprolol Tartrate [Lopressor] 12.5 mg PO BID 05/30/21 08/31/22 History Rosuvastatin Calcium [Crestor] 40 mg PO HS 05/30/21 08/31/22 History HYDROcodone/APAP 7.5-325MG [[facility] 1 - 2 tab PO Q6HR PRN #32 tab 10/02/21 08/31/22 Rx 7.5-325] Ondansetron Odt [Zofran ODT] 4 mg PO Q8HR PRN #14 tab 10/02/21 08/31/22 Rx Sennosides-Docusate Sodium 1 tab PO BID PRN 08/31/22 08/31/22 History [Senokot-S] Cyclobenzaprine [Flexeril] 10 mg PO TID PRN #60 tab 09/07/22 Rx HYDROcodone/APAP 7.5-325MG [[facility] 1 - 2 each PO Q6HR PRN #56 tab 09/07/22 Rx 7.5-325] Ondansetron [Zofran] 4 mg PO Q6HR PRN #30 tab 09/07/22 Rx Amoxic-Pot Clav 875-125Mg 1 tab PO BID 7 Days #14 tab 09/11/22 Rx [Augmentin 875-125] Allergies Allergy/AdvReac Type Severity Reaction Status Date / Time prochlorperazine Allergy ABN. Verified 09/05/22 07:52 [From Compazine] FLIGHT/FIGHT RESPONSE sulfamethoxazole Allergy Rash/Hives Verified 09/05/22 07:52 [From Bactrim] trimethoprim [From Bactrim] Allergy Rash/Hives Verified 09/05/22 07:52 Physical Exam Vitals: Vital Signs Temp Pulse Resp BP Pulse Ox 09/07/22 14:00 98.3 F 78 14 116/73 92 L 09/07/22 07:02 100.4 F H 90 17 99/54 90 L 09/07/22 02:00 98.2 F 80 18 102/62 94 L 09/06/22 20:00 100.1 F H 87 17 105/64 92 L 09/06/22 17:59 99 Intake and Output 09/07/22 09/07/22 09/07/22 06:59 14:59 22:59 Other: # Voids 1 # Bowel Movements 1 GENERAL DESCRIPTION: Middle-aged female lying in bed, no distress. No tachypnea or accessory muscle of respiration use. HEENT: Shows Pallor , no scleral icterus. Oral mucous membrane is dry. No p haryngeal erythema or thrush NECK: Trachea central, no thyromegaly. LUNGS: Unlabored breathing. Coarse breath sounds bilaterally HEART: S1, S2, regular rate and rhythm. No loud murmur ABDOMEN: Soft, no tenderness , guarding or rigidity, no organomegaly EXTREMITIES: No edema of feet. SKIN: No rash, no masses palpable. NEUROLOGICAL: The patient is awake, alert, oriented x3, mood and affect normal. Results CBC & Chem 7: 09/11/22 04:54 09/11/22 04:54 Labs: Abnormal Lab Results - Last 24 Hours (Table) 09/07/22 09/07/22 09/07/22 Range/Units 10:32 10:32 13:00 RBC 3.54 L (3.80-5.40) m/uL Hgb 10.5 L (11.4-16.0) gm/dL Hct 31.9 L (34.0-46.0) % Lymphocytes # 0.9 L (1.0-4.8) k/uL Sodium 136 L (137-145) mmol/L Calcium 8.0 L (8.4-10.2) mg/dL Urine Protein 1+ H (Negative) Urine Ketones 2+ H (Negative) Urine Blood Moderate H (Negative) Urine RBC 15 H (0-5) /hpf Urine Bacteria Rare H (None) /hpf Hyaline Casts 5 H (0-2) /lpf Urine Mucus Few H (None) /hpf Assessment and Plan (1) Aspiration pneumonia Status: Acute Code(s): J69.0 - PNEUMONITIS DUE TO INHALATION OF FOOD AND VOMIT SNOMED Code(s): 096550360 Plan: 1patient with a fever in this patient electively admitted to the hospital for laminectomy and decompression and for5 and L5-S1 also have discectomy and placement of interbody graft patient did have a postop nausea and vomiting and now with evidence of right hilar infiltrate suspicious for pneumonia likely aspiration pneumonitis/pneumonia, patient currently do not have any other obvious focus for this fever with negative UA abdominal soft and examination and evidence of any cellulitis. 2discontinue Rocephin. 3obtain inflammatory markers and sputum if possible. 4start the patient on Unasyn 3 g every 6 hours. We will follow on clinical condition and cultures to further adjust medication if needed Thank you for this consultation we will follow the patient along with you Time with Patient: Greater than 30
[2022-09-08] MEDS: HYDROcodone/APAP 7.5-325MG 1 EACH TAB PO PRN ×4 (00:36→18:37)
[2022-09-08] MEDS: CYCLOBENZAPRINE 10 MG TAB PO PRN (00:36)
[2022-09-08] MEDS: SODIUM CHLORIDE 0.9% 1,000 ML IV SCH ×2 (05:16→16:55)
[2022-09-08] MEDS: AMPICILLIN-SULBACTAM 3 GM in SODIUM CHLORIDE 0.9% 100 ML IVPB SCH ×4 (05:26→23:48)
--- NOTE | 2022-09-08 07:48 | P.PN ---
Subjective Progress Note Date: 09/08/22 Principal diagnosis: Status post L4 to L5 and L5 to S1 minimally invasive lateral decompression and fusion This is a 61 year-old female post []. This is post-op day 3. The patient was evaluated at the bedside today. The patient denies nausea, vomiting, abdominal pain, shortness of breath, and chest pain this morning. She states her pain is controlled at this time. The patient has been up ambulating. She is currently on oxygen and receiving Unasyn for possible pneumonia. She has been evaluated by Dr. Vazquez. Objective - Vital Signs Vital signs: Vital Signs Temp 98.7 F 09/07/22 20:00 Pulse 67 09/08/22 02:00 Resp 17 09/08/22 02:00 BP 92/57 09/08/22 02:00 Pulse Ox 93 L 09/08/22 02:00 FiO2 Intake & Output 09/07/22 09/08/22 09/08/22 18:59 06:59 18:59 Intake Total 440 Balance 440 Intake: Intake, IV Titration 100 Amount Ampicillin-Sulbactam 3 gm 100 In Sodium Chloride 0.9% 100 ml @ 200 mls/hr IVPB Q6HR [facility] Rx#:[id number] Oral 340 Other: # Voids 2 2 # Bowel Movements 1 - Exam The patient is a 61-year-old female who is in no acute distress. She is alert and oriented 3. Abdomen is soft and nontender. Chest has good excursion with deep inspiration. Incision site dressing is intact with some sanginous drainage on the left side. No erythema or purulent drainage. Extremities has not had neurological change from prior to surgery. She has sustained dorsiflexion and plantar flexion and EHL function. She has good foot and ankle motion. Bilat eral calves are soft and nontender. Neurological and circulatory status is intact. - Labs CBC & Chem 7: 09/07/22 10:32 09/07/22 10:32 Labs: Abnormal Lab Results - Last 24 Hours (Table) 09/07/22 09/07/22 09/07/22 Range/Units 10:32 10:32 10:32 RBC 3.54 L (3.80-5.40) m/uL Hgb 10.5 L (11.4-16.0) gm/dL Hct 31.9 L (34.0-46.0) % Lymphocytes # 0.9 L (1.0-4.8) k/uL Sodium 136 L (137-145) mmol/L Calcium 8.0 L (8.4-10.2) mg/dL Procalcitonin 0.63 H (0.02-0.09) ng/mL Urine Protein (Negative) Urine Ketones (Negative) Urine Blood (Negative) Urine RBC (0-5) /hpf Urine Bacteria (None) /hpf Hyaline Casts (0-2) /lpf Urine Mucus (None) /hpf 09/07/22 Range/Units 13:00 RBC (3.80-5.40) m/uL Hgb (11.4-16.0) gm/dL Hct (34.0-46.0) % Lymphocytes # (1.0-4.8) k/uL Sodium (137-145) mmol/L Calcium (8.4-10.2) mg/dL Procalcitonin (0.02-0.09) ng/mL Urine Protein 1+ H (Negative) Urine Ketones 2+ H (Negative) Urine Blood Moderate H (Negative) Urine RBC 15 H (0-5) /hpf Urine Bacteria Rare H (None) /hpf Hyaline Casts 5 H (0-2) /lpf Urine Mucus Few H (None) /hpf Assessment and Plan (1) Spondylolisthesis Current Visit: Yes Status: Acute Code(s): M43.10 - SPONDYLOLISTHESIS, SITE UNSPECIFIED SNOMED Code(s): 217115260 Plan: 1. Continue pain control 2. Continue to follow with internal medicine and infectious disease for post op fever and possible pneumonia 3. Continue physical therapy and ambulation 4. Anticipate discharge home when cleared by internal medicine and ID.
[2022-09-08] MEDS: METOPROLOL TARTRATE 12.5 MG TAB PO SCH ×2 (08:50→20:41)
[2022-09-08] MEDS: SENNOSIDES-DOCUSATE SODIUM 1 EACH TAB PO SCH (08:50)
[2022-09-08] MEDS: CHOLECALCIFEROL 125 MCG (5000 IU) TABLET PO SCH (08:50)
[2022-09-08 09:13] LABS: Basophils # (A) 0.01 X 10*3/uL (0.00-0.10); Basophils % (A) 0.2 %; Eosinophils # (A) 0.72 X 10*3/uL (0.04-0.35); Eosinophils % (A) 11.5 %; HCT 26.2 % (37.2-46.3); HGB 8.4 g/dL (12.0-15.0); Immature Grans, Automated 0.3 %; Lymphocytes # (A) 0.81 X 10*3/uL (0.90-5.00); MCH 29.6 pg (27.0-32.0); MCHC 32.1 g/dL (32.0-37.0); MCV 92.3 fL (80.0-97.0); Mean Platelet Volume 10.7 fL (9.5-12.2); Monocytes # (A) 0.64 X 10*3/uL (0.20-1.00); Monocytes % (A) 10.2 %; NRBC Per 100 WBC 0 /100 WBCS (0.0-0.0); Neutrophils # (A) 4.05 X 10*3/uL (1.80-7.70); Neutrophils % (A) 64.8 %; Platelet Count 138 X 10*3/uL (140-440); RBC 2.84 X 10*6/uL (4.10-5.20); WBC 6.25 X 10*3/uL (4.50-10.00)
[2022-09-08 10:14] LABS: African American GFR (CKD) 108.4 (60.0-200.0); Anion Gap 10.5 mmol/L (10.00-18.00); BUN/Creat Ratio 18.71 Ratio (12.00-20.00); Blood Urea Nitrogen 13.1 mg/dL (9.0-27.0); Carbon Dioxide 23.5 mmol/L (20.0-27.5); Non-African American GFR(CKD) 93.5 (60.0-200.0); Potassium 3.5 mmol/L (3.5-5.5)
--- NOTE | 2022-09-08 11:05 | P.PN ---
Subjective Progress Note Date: 09/08/22 This is a 61 year old female with medical history of gerd, hypertension, hyperlipidemia, Coronary artery disease, former smoker. Presents for an elective decompression and fusion of L4 5 L5-S1 due to spondylisthesis with stenosis and lower extremity radiculopathy. Patient is evaluted on the medical floor p ostoperative day #1. Patient is complaining of significant pain to the lower back 8/10 does report the IV pain medication has brought the pain back down to a 5/10. Patient has only used the incentive spirometer a few times she reports. Today she is having fever t max of 100.1 this is most likely a postoperative atelectasis and chest xray was done which does show atelectic changes although the final report is not back yet. Patient is encouraged to use the IS 10 x an hour while awake. A urinalysis will also be checked. Patient is hypotensive with BP 88/51 overnight and currently 90/52 patient will be given a fluid bolus and continue on IV fluids at this time. Patient does not have an elevated white count, electrolytes and kidney function are essentially unremarkable. Home medication amlodipine and losartan are currently on hold at this time. Patient denies chest pain, denies shortness of breath. No nausea, vomiting or diarrhea noted. Patient denies any lower extremity numbness or tingling. Patient is passing gas. Indwelling catheter in place. Recommend to monitor blood pressure closely. 09/07/2022 Patient reports improvement in lower back pain was able to work with physical therapy and sitting up in chair. Patient is requiring 4L of oxygen via nasal cannula. Chest xray was done showing new focal right perihilar and left basilar opacities. Left basilar opacity probably atelectasis, right hilar opacity could represent pneumonia. Patient remains febrile with heart rate 100.4 today, and has been started on IV ceftriaxone. A urinalysis is done not suggestive of infection. 09/08/2022 Patient remains on the medical floor postoperative day #3 spinal decompresion and fusion disectomy and placement of interbody graft. Patient reports significant pain today to the lower back. Procalcitonin level is 0.63 and patient was started on antibiotic coverage. Infectious disease has been consulted and antibiotics are adjusted to IV unasyn with concern this may be an aspiration pneumonia. White count remains normal and fevers are improving. Currently requiring 4L of oxygen. Review of Systems Constitutional: Reports fatigue, Reports fever Cardiovascular: denied any chest pain, palpitations Gastrointestinal: Reports nausea, no vomiting or diarrhea currently. Pulmonary: Denied any shortness of breath cough Neurologic denied any new focal deficits All inpatient medications were reviewed and appropriate changes in these medications as dictated in the interval history and assessment and plan. PHYSICAL EXAMINATION: GENERAL: The patient is alert and oriented x3, not in any acute distress. Well developed, well nourished. HEENT: Pupils are round and equally reacting to light. EOMI. No scleral icterus. No conjunctival pallor. Normocephalic, atraumatic. No pharyngeal erythema. No thyromegaly. CARDIOVASCULAR: S1 and S2 present. No murmurs, rubs, or gallops. PULMONARY: Chest is clear to auscultation, no wheezing or crackles. Diminished. ABDOMEN: Soft, nontender, nondistended, normoactive bowel sounds. No palpable organomegaly. MUSCULOSKELETAL: No joint swelling or deformity. Post surgical dressing intact. Deferred to primary services. EXTREMITIES: No cyanosis, clubbing, or pedal edema. NEUROLOGICAL: Gross neurological examination did not reveal any focal deficits. SKIN: No rashes. Assessment Postoperative day 2 elective decompression and fusion L4 5 and L5-S1, disectomy and graft placement. Hypotension postoperative Fever possible due to aspiration pneumonia procalcitonin is elevated. History hyperlipidemia History gastroesophageal reflux disease Coronary artery disease History of IBS/Diverticulitis Degenerative disc disease Former Smoker GI prophylaxis DVT prophylaxis as per primary Full Code Plan Continue IV fluids and continue to hold antihypertensives Antibiotics adjusted to IV unasyn and infectious disease is following. Continue to encourage incentive spirometer and supportive care Thank you for this consultation The impression and plan of care has been dictated by Nurse Cele Up as directed. Dr. Kishan MD I have performed a history and physical examination and medical decision making of this patient, discussed the same with the dictator, and agree with the dictat ors assessment and plan as written, documented as a scribe. Based on total visit time, I have performed more than 50% of this visit. Objective - Vital Signs Vital signs: Vital Signs Temp 99.0 F 09/08/22 07:15 Pulse 75 09/08/22 07:15 Resp 17 09/08/22 07:15 BP 96/57 09/08/22 07:15 Pulse Ox 90 L 09/08/22 07:15 FiO2 Intake & Output 09/07/22 09/08/22 09/08/22 18:59 06:59 18:59 Intake Total 440 Balance 440 Intake: Intake, IV Titration 100 Amount Ampicillin-Sulbactam 3 gm 100 In Sodium Chloride 0.9% 100 ml @ 200 mls/hr IVPB Q6HR [facility] Rx#:[id number] Oral 340 Other: # Voids 2 2 # Bowel Movements 1 - Labs CBC & Chem 7: 09/08/22 06:13 09/08/22 06:13 Labs: Abnormal Lab Results - Last 24 Hours (Table) 09/07/22 09/07/22 09/07/22 Range/Units 10:32 10:32 10:32 RBC 3.54 L (3.80-5.40) m/uL Hgb 10.5 L (11.4-16.0) gm/dL Hct 31.9 L (34.0-46.0) % RDW (11.5-14.5) % Plt Count (140-440) X 10*3/uL Lymphocytes # 0.9 L (1.0-4.8) k/uL Eosinophils # (0.04-0.35) X 10*3/uL Sodium 136 L (137-145) mmol/L Calcium 8.0 L (8.4-10.2) mg/dL Procalcitonin 0.63 H (0.02-0.09) ng/mL Urine Protein (Negative) Urine Ketones (Negative) Urine Blood (Negative) Urine RBC (0-5) /hpf Urine Bacteria (None) /hpf Hyaline Casts (0-2) /lpf Urine Mucus (None) /hpf 09/07/22 09/08/22 09/08/22 Range/Units 13:00 06:13 06:13 RBC 2.84 L (3.80-5.40) m/uL Hgb 8.4 L (11.4-16.0) gm/dL Hct 26.2 L (34.0-46.0) % RDW 15.0 H (11.5-14.5) % Plt Count 138 L (140-440) X 10*3/uL Lymphocytes # 0.81 L (1.0-4.8) k/uL Eosinophils # 0.72 H (0.04-0.35) X 10*3/uL Sodium (137-145) mmol/L Calcium 8.0 L (8.4-10.2) mg/dL Procalcitonin (0.02-0.09) ng/mL Urine Protein 1+ H (Negative) Urine Ketones 2+ H (Negative) Urine Blood Moderate H (Negative) Urine RBC 15 H (0-5) /hpf Urine Bacteria Rare H (None) /hpf Hyaline Casts 5 H (0-2) /lpf Urine Mucus Few H (None) /hpf Assessment and Plan Time with Patient: Less than 30
[2022-09-08] MEDS: SERTRALINE 100 MG TAB PO SCH (20:41)
[2022-09-08] MEDS: SUCRALFATE 1 GM TAB PO SCH (20:41)
[2022-09-08] MEDS: ATORVASTATIN 80 MG TAB PO SCH (20:41)
[2022-09-08] MEDS: ASPIRIN 81 MG PO SCH (20:41)
[2022-09-08] MEDS: PANTOPRAZOLE 40 MG TABLET PO SCH (20:41)
--- NOTE | 2022-09-08 20:41 | XR ---
EXAMINATION TYPE: XR chest 1V portable DATE OF EXAM: 09/08/2022 8:18 PM COMPARISON: Chest x-ray 09/06/2022 TECHNIQUE: XR chest 1V portable . CLINICAL INDICATION:Female, 61 years old with history of fever; FINDINGS: Lungs/Pleura: Blunting of the right costophrenic angle suggesting at least a trace pleural effusion. Bibasilar atelectasis. Atelectatic changes of the lateral left lung base versus developing infiltrate . No pneumothorax Pulmonary vascularity: Unremarkable. Heart/mediastinum: Cardiomediastinal silhouette is unremarkable. Atherosclerotic calcifications are seen in the aorta. Musculoskeletal: No acute osseous pathology. There is fixation hardware in the lower cervical spine. IMPRESSION: 1. Atelectatic changes of the left lung base versus developing airspace opacity. 2. Trace right pleural effusion suggested.
[2022-09-08] MEDS: HYDROmorphone 1 MG/ML 1 ML SYRINGE IVP PRN (22:55)
[2022-09-08] MEDS: traZODone HCL 100 MG TAB PO SCH (23:48)
[2022-09-09] MEDS: AMPICILLIN-SULBACTAM 3 GM in SODIUM CHLORIDE 0.9% 100 ML IVPB SCH ×2 (06:28→12:31)
[2022-09-09] MEDS: SODIUM CHLORIDE 0.9% 1,000 ML IV SCH ×2 (06:29→13:23)
[2022-09-09] MEDS: CHOLECALCIFEROL 125 MCG (5000 IU) TABLET PO SCH (08:10)
[2022-09-09] MEDS: SENNOSIDES-DOCUSATE SODIUM 1 EACH TAB PO SCH (08:10)
[2022-09-09] MEDS: METOPROLOL TARTRATE 12.5 MG TAB PO SCH ×2 (08:10→20:30)
[2022-09-09] MEDS: HYDROcodone/APAP 7.5-325MG 1 EACH TAB PO PRN ×3 (08:11→20:29)
--- NOTE | 2022-09-09 08:21 | P.PN ---
Subjective Progress Note Date: 09/09/22 Principal diagnosis: Status post L4 to L5 and L5 to S1 minimally invasive lateral decompression and fusion This is a 61 year-old female post L4 to L5 and L5 to S1 minimally invasive lateral decompression and fusion. This is post-op day 4. The patient was evaluated at the bedside today. The patient denies nausea, vomiting, abdominal pain, shortness of breath, and chest pain this morning. She states her pain is controlled at this time. The patient has been up ambulating. She is still requiring oxygen and receiving Unasyn for possible pneumonia. She has been evaluated by Dr. Vazquez. Objective - Vital Signs Vital signs: Vital Signs Temp 98.8 F 09/09/22 07:01 Pulse 64 09/09/22 07:01 Resp 18 09/09/22 07:01 BP 131/78 09/09/22 07:01 Pulse Ox 94 L 09/09/22 07:01 FiO2 Intake & Output 09/08/22 09/09/22 09/09/22 18:59 06:59 18:59 Intake Total 500 Balance 500 Intake: Oral 500 Other: Voiding Method Toilet Toilet # Voids 0 2 # Bowel Movements 0 - Exam The patient is a 61-year-old female who is in no acute distress. She is alert and oriented 3. Abdomen is soft and nontender. Chest has good excursion with deep inspiration. Incision site dressing is intact with some sanginous drainage on the left side. No erythema or purulent drainage. Extremities has not had neurological change from prior to surgery. She has sustained dorsiflexion and plantar flexion and EHL function. She has good foot and ankle motion. Bilateral calves are soft and nontender. Neurological and circulatory status is intact. - Labs CBC & Chem 7: 09/08/22 06:13 09/08/22 06:13 Labs: Abnormal Lab Results - Last 24 Hours (Table) 09/08/22 09/08/22 Range/Units 06:13 06:13 RBC 2.84 L (4.10-5.20) X 10*6/uL Hgb 8.4 L (12.0-15.0) g/dL Hct 26.2 L (37.2-46.3) % RDW 15.0 H (11.5-14.5) % Plt Count 138 L (140-440) X 10*3/uL Lymphocytes # 0.81 L (0.90-5.00) X 10*3/uL Eosinophils # 0.72 H (0.04-0.35) X 10*3/uL Calcium 8.0 L (8.7-10.3) mg/dL Assessment and Plan (1) Spondylolisthesis Current Visit: Yes Status: Acute Code(s): M43.10 - SPONDYLOLISTHESIS, SITE UNSPECIFIED SNOMED Code(s): 294968398 Plan: 1. Continue pain control. 2. Continue to follow with internal medicine and infectious disease for post op fever and possible pneumonia. 3. Continue physical therapy and ambulation. Encouraged incentive spirometry. 4. Anticipate discharge home when cleared by internal medicine and ID.
--- NOTE | 2022-09-09 10:13 | P.PN ---
Subjective Progress Note Date: 09/09/22 This is a 61 year old female with medical history of gerd, hypertension, hyperlipidemia, Coronary artery disease, former smoker. Presents for an elective decompression and fusion of L4 5 L5-S1 due to spondylisthesis with stenosis and lower extremity radiculopathy. Patient is evaluted on the medical floor p ostoperative day #1. Patient is complaining of significant pain to the lower back 8/10 does report the IV pain medication has brought the pain back down to a 5/10. Patient has only used the incentive spirometer a few times she reports. Today she is having fever t max of 100.1 this is most likely a postoperative atelectasis and chest xray was done which does show atelectic changes although the final report is not back yet. Patient is encouraged to use the IS 10 x an hour while awake. A urinalysis will also be checked. Patient is hypotensive with BP 88/51 overnight and currently 90/52 patient will be given a fluid bolus and continue on IV fluids at this time. Patient does not have an elevated white count, electrolytes and kidney function are essentially unremarkable. Home medication amlodipine and losartan are currently on hold at this time. Patient denies chest pain, denies shortness of breath. No nausea, vomiting or diarrhea noted. Patient denies any lower extremity numbness or tingling. Patient is passing gas. Indwelling catheter in place. Recommend to monitor blood pressure closely. 09/07/2022 Patient reports improvement in lower back pain was able to work with physical therapy and sitting up in chair. Patient is requiring 4L of oxygen via nasal cannula. Chest xray was done showing new focal right perihilar and left basilar opacities. Left basilar opacity probably atelectasis, right hilar opacity could represent pneumonia. Patient remains febrile with heart rate 100.4 today, and has been started on IV ceftriaxone. A urinalysis is done not suggestive of infection. 09/08/2022 Patient remains on the medical floor postoperative day #3 spinal decompresion and fusion disectomy and placement of interbody graft. Patient reports significant pain today to the lower back. Procalcitonin level is 0.63 and patient was started on antibiotic coverage. Infectious disease has been consulted and antibiotics are adjusted to IV unasyn with concern this may be an aspiration pneumonia. White count remains normal and fevers are improving. Currently requiring 4L of oxygen. 09/09/2022 Patient is postoperative day #4 spinal surgery. Being treated with IV unasyn for likely an aspiration pneumonia. Patient had f/u chest xray yesterday showing atelectic changes of the left lung base versus developing airspace opacity, trace right pleural effusion suggested. Blood pressure is improving will recommend to cut back IV fluids to 50 mls/hr and monitor closely. Review of Systems Constitutional: Reports fatigue, Reports fever Cardiovascular: denied any chest pain, palpitations Gastrointestinal: Reports nausea, no vomiting or diarrhea currently. Pulmonary: Denied any shortness of breath cough Neurologic denied any new focal deficits All inpatient medications were reviewed and appropriate changes in these medications as dictated in the interval history and assessment and plan. PHYSICAL EXAMINATION: GENERAL: The patient is alert and oriented x3, not in any acute distress. Well developed, well nourished. HEENT: Pupils are round and equally reacting to light. EOMI. No scleral icterus. No conjunctival pallor. Normocephalic, atraumatic. No pharyngeal erythema. No thyromegaly. CARDIOVASCULAR: S1 and S2 present. No murmurs, rubs, or gallops. PULMONARY: Chest is clear to auscultation, no wheezing or crackles. Diminished. ABDOMEN: Soft, nontender, nondistended, normoactive bowel sounds. No palpable organomegaly. MUSCULOSKELETAL: No joint swelling or deformity. Post surgical dressing intact. Deferred to primary services. EXTREMITIES: No cyanosis, clubbing, or pedal edema. NEUROLOGICAL: Gross neurological examination did not reveal any focal deficits. SKIN: No rashes. Assessment Postoperative day 4 elective decompression and fusion L4 5 and L5-S1, disectomy and graft placement. Hypotension postoperative improved Fever possible due to aspiration pneumonia procalcitonin is elevated. History hyperlipidemia History gastroesophageal reflux disease Coronary artery disease History of IBS/Diverticulitis Degenerative disc disease Former Smoker GI prophylaxis DVT prophylaxis as per primary Full Code Plan Continue IV fluids and continue to hold antihypertensives, IV fluids will be decreased to 50 ml/hr Antibiotics adjusted to IV unasyn and infectious disease is following. Continue to encourage incentive spirometer and supportive care Thank you for this consultation The impression and plan of care has been dictated by Sri Dc, Nurse Practitioner as directed. Dr. Kishan MD I have performed a history and physical examination and medical decision making of this patient, discussed the same with the dictator, and agree with the dictators assessment and plan as written, documented as a scribe. Based on total visit time, I have performed more than 50% of this visit. Objective - Vital Signs Vital signs: Vital Signs Temp 98.8 F 09/09/22 07:01 Pulse 64 09/09/22 07:01 Resp 18 09/09/22 07:01 BP 131/78 09/09/22 07:01 Pulse Ox 94 L 09/09/22 07:01 FiO2 Intake & Output 09/08/22 09/09/22 09/09/22 18:59 06:59 18:59 Intake Total 500 Balance 500 Intake: Oral 500 Other: Voiding Method Toilet Toilet # Voids 0 2 # Bowel Movements 0 - Labs CBC & Chem 7: 09/08/22 06:13 09/08/22 06:13 Labs: Abnormal Lab Results - Last 24 Hours (Table) 09/08/22 Range/Units 06:13 Calcium 8.0 L (8.7-10.3) mg/dL Assessment and Plan Time with Patient: Less than 30
--- NOTE | 2022-09-09 14:59 | P.PN ---
Subjective Progress Note Date: 09/08/22 Principal diagnosis: Aspiration pneumonia Patient is a 61-year-old female presenting to the hospital 09/05/2022 in this patient with a chronic back pain from degenerative disc disease patient is status postlaminectomy and decompression L4-5 L5-S1 along with discectomy and placement of interbody graft, patient did have a postoperative nausea and vomiting subsequently developing a fever and x-ray did show evidence of perihilar infiltrate concern for possible aspiration pneumonia On today's evaluation that is 09/08/2022, the patient fever pattern has improved and the patient is afebrile this morning patient is feeling better no further nausea vomiting she did have a cough not bringing up any sputum no abdominal pain and no diarrhea Objective - Vital Signs Vital signs: Vital Signs Temp 99.0 F 09/08/22 07:15 Pulse 75 09/08/22 07:15 Resp 17 09/08/22 07:15 BP 96/57 09/08/22 07:15 Pulse Ox 90 L 09/08/22 07:15 FiO2 Intake & Output 09/07/22 09/08/22 09/08/22 18:59 06:59 18:59 Intake Total 440 Balance 440 Intake: Intake, IV Titration 100 Amount Ampicillin-Sulbactam 3 gm 100 In Sodium Chloride 0.9% 100 ml @ 200 mls/hr IVPB Q6HR [facility] Rx#:[id number] Oral 340 Other: # Voids 2 2 # Bowel Movements 1 - Exam GENERAL DESCRIPTION: A middle-age female up in the chair in no distress RESPIRATORY SYSTEM: Unlabored breathing , decreased breath sounds at bases HEART: S1 S2 regular rate and rhythm , ABDOMEN: Soft , no tenderness EXTREMITIES: No edema feet - Labs CBC & Chem 7: 09/08/22 06:13 09/08/22 06:13 Labs: Abnormal Lab Results - Last 24 Hours (Table) 09/07/22 09/07/22 09/07/22 Range/Units 10:32 10:32 10:32 RBC 3.54 L (3.80-5.40) m/uL Hgb 10.5 L (11.4-16.0) gm/dL Hct 31.9 L (34.0-46.0) % RDW (11.5-14.5) % Plt Count (140-440) X 10*3/uL Lymphocytes # 0.9 L (1.0-4.8) k/uL Eosinophils # (0.04-0.35) X 10*3/uL Sodium 136 L (137-145) mmol/L Calcium 8.0 L (8.4-10.2) mg/dL Procalcitonin 0.63 H (0.02-0.09) ng/mL Urine Protein (Negative) Urine Ketones (Negative) Urine Blood (Negative) Urine RBC (0-5) /hpf Urine Bacteria (None) /hpf Hyaline Casts (0-2) /lpf Urine Mucus (None) /hpf 09/07/22 09/08/22 09/08/22 Range/Units 13:00 06:13 06:13 RBC 2.84 L (3.80-5.40) m/uL Hgb 8.4 L (11.4-16.0) gm/dL Hct 26.2 L (34.0-46.0) % RDW 15.0 H (11.5-14.5) % Plt Count 138 L (140-440) X 10*3/uL Lymphocytes # 0.81 L (1.0-4.8) k/uL Eosinophils # 0.72 H (0.04-0.35) X 10*3/uL Sodium (137-145) mmol/L Calcium 8.0 L (8.4-10.2) mg/dL Procalcitonin (0.02-0.09) ng/mL Urine Protein 1+ H (Negative) Urine Ketones 2+ H (Negative) Urine Blood Moderate H (Negative) Urine RBC 15 H (0-5) /hpf Urine Bacteria Rare H (None) /hpf Hyaline Casts 5 H (0-2) /lpf Urine Mucus Few H (None) /hpf Assessment and Plan (1) Aspiration pneumonia Current Visit: Yes Status: Acute Code(s): J69.0 - PNEUMONITIS DUE TO INHALATION OF FOOD AND VOMIT SNOMED Code(s): 288396841 Plan: 1patient with a fever in this patient electively admitted to the hospital for laminectomy and decompression and for5 and L5-S1 also have discectomy and placement of interbody graft patient did have a postop nausea and vomiting and now with evidence of right hilar infiltrate suspicious for pneumonia likely aspiration pneumonitis/pneumonia, patient currently do not have any other obvious focus for this fever with negative UA abdominal soft and examination and evidence of any cellulitis. 2patient continue with Unasyn 3 g every 6 hours. Time with Patient: Less than 30
--- NOTE | 2022-09-09 15:00 | P.PN ---
Subjective Progress Note Date: 09/09/22 Principal diagnosis: Aspiration pneumonia Patient is a 61-year-old female presenting to the hospital 09/05/2022 in this patient with a chronic back pain from degenerative disc disease patient is status postlaminectomy and decompression L4-5 L5-S1 along with discectomy and placement of interbody graft, patient did have a postoperative nausea and vomiting subsequently developing a fever and x-ray did show evidence of perihilar infiltrate concern for possible aspiration pneumonia On today's evaluation that is 09/09/2022, the patient remains to be afebrile, patient is breathing comfortably still requiring supplemental oxygen, the patient denies having any chest pain no worsening cough no further nausea no vomiting no abdominal pain or diarrhea Objective - Vital Signs Vital signs: Vital Signs Temp 98.8 F 09/09/22 07:01 Pulse 64 09/09/22 07:01 Resp 18 09/09/22 08:11 BP 131/78 09/09/22 07:01 Pulse Ox 94 L 09/09/22 07:01 FiO2 Intake & Output 09/08/22 09/09/22 09/09/22 18:59 06:59 18:59 Intake Total 500 Balance 500 Intake: Oral 500 Other: Voiding Method Toilet Toilet Toilet # Voids 0 2 # Bowel Movements 0 - Exam GENERAL DESCRIPTION: A middle-age female up in the chair in no distress RESPIRATORY SYSTEM: Unlabored breathing , decreased breath sounds at bases HEART: S1 S2 regular rate and rhythm , ABDOMEN: Soft , no tenderness EXTREMITIES: No edema feet - Labs CBC & Chem 7: 09/08/22 06:13 09/08/22 06:13 Assessment and Plan (1) Aspiration pneumonia Current Visit: Yes Status: Acute Code(s): J69.0 - PNEUMONITIS DUE TO INHALATION OF FOOD AND VOMIT SNOMED Code(s): 586576435 Plan: 1patient with a fever in this patient electively admitted to the hospital for laminectomy and decompression and for5 and L5-S1 also have discectomy and placement of interbody graft patient did have a postop nausea and vomiting and now with evidence of right hilar infiltrate suspicious for pneumonia likely aspiration pneumonitis/pneumonia, patient currently do not have any other obvious focus for this fever with negative UA abdominal soft and examination and evidence of any cellulitis. 2patient apparently did have problem with peripheral IVs and currently do not have any IV per the nursing staff, and we will switch Unasyn to Augmentin and monitor clinical course closely Time with Patient: Less than 30
[2022-09-09] MEDS: PANTOPRAZOLE 40 MG TABLET PO SCH (20:30)
[2022-09-09] MEDS: ASPIRIN 81 MG PO SCH (20:30)
[2022-09-09] MEDS: ATORVASTATIN 80 MG TAB PO SCH (20:30)
[2022-09-09] MEDS: traZODone HCL 100 MG TAB PO SCH (20:30)
[2022-09-09] MEDS: AMOXIC-POT CLAV 875-125MG 1 EACH TAB PO SCH (20:30)
[2022-09-09] MEDS: SUCRALFATE 1 GM TAB PO SCH (20:31)
[2022-09-09] MEDS: SERTRALINE 100 MG TAB PO SCH (20:31)
[2022-09-10] MEDS: HYDROcodone/APAP 7.5-325MG 1 EACH TAB PO PRN ×3 (04:43→20:19)
[2022-09-10] MEDS: AMOXIC-POT CLAV 875-125MG 1 EACH TAB PO SCH ×2 (09:09→20:55)
[2022-09-10] MEDS: METOPROLOL TARTRATE 12.5 MG TAB PO SCH ×2 (09:09→20:55)
[2022-09-10] MEDS: CHOLECALCIFEROL 125 MCG (5000 IU) TABLET PO SCH (09:09)
[2022-09-10] MEDS: SENNOSIDES-DOCUSATE SODIUM 1 EACH TAB PO SCH (09:09)
[2022-09-10] MEDS: SODIUM CHLORIDE 0.9% 1,000 ML IV SCH (10:12)
--- NOTE | 2022-09-10 12:59 | P.PN ---
Progress Note - Text Progress Note Date: 09/10/22 Orthopedic Spine: History of present illness: Patient is a pleasant 61-year-old female who attempted to be seen and examined at bedside. She is currently down getting x-ray imaging of the chest. She was diagnosed with pneumonia over the weekend. She is being seen by medicine and infectious disease. She is currently on 3 L O2 nasal cannula with oxygen saturation the 90s. On room air she is D stabbing down into the 70s. They are currently planning to try to wean the patient off between today and tomorrow with hopeful plans for discharge home tomorrow. She has been able to increase her mobility with transfers to a bedside chair in the restroom. She is working with physical therapy. Assessment: Status post L4-5 and L5-S1 minimally invasive posterior lateral decompression and fusion with transforaminal lumbar interbody fusion Low back pain L4-5 spondylolisthesis L4-5 and L5-S1 degenerative disc disease Lower extremity radiculopathy L4-5 and L5-S1 foraminal stenosis L4-5 and L5-S1 facet arthropathy Pneumonia Hypoxemia on room air Currently on 3 L O2 nasal cannula Postoperative fever; currently 100.4 Hyperlipidemia History of IBS/diverticulitis Coronary artery disease Plan: 1. Ambulate as tolerated; work with Physical Therapy to increase mobilization 2. Continue pain control with IV and oral medications; will plan to begin weaning the patient off of IV narcotic medication in anticipation for discharge home in the next 1-2 days MAPS has been reviewed last Saturday. An "Opiod Start Talking" Form has been signed and placed in the patient's chart. A prescription has been written for hydrocodone 7.5 mg/325 mg, take 1-2 tabs every 6 hours as needed for pain, dispensed #56. She is given prescription for cyclobenzaprine 10 mg 1 tab 3 times a day as needed for muscle spasm, dispensed #60. She is also given a prescription for Zofran 4 mg as needed for nausea. Medications are sent to the [facility] pharmacy located within [facility] per request of the patient. 3. Dressings to remain intact with Optifoam; patient may shower with dressings intact 4. Medical management can continue to manage patient for patient's other medical diagnoses including pneumonia and hypoxemia on room air; patient currently on 3 L O2 nasal cannula 5. We will continue to follow the patient closely; patient been able to continue increasing her mobilization and ambulation postoperatively. However, she developed pneumonia over the weekend and has had difficulty with her oxygen saturation. She is currently on antibiotics per infectious disease. She is also on 3 L O2 nasal cannula. She is currently undergoing x-ray imaging of the chest. She will continue to remain inpatient until she is clear for discharge by medicine and infectious disease. If she is able to improve today, we may plan for discharge home as early as tomorrow, 09/11/2022. 6. Patient can follow-up with Jonnathan Hayden PA-C or Dr. Brian Connell at [facility] in 2-3 weeks following discharge
--- NOTE | 2022-09-10 13:07 | XR ---
EXAMINATION TYPE: XR chest 2V DATE OF EXAM: 09/10/2022 COMPARISON: 09/08/2022 HISTORY: Shortness of breath TECHNIQUE: Frontal and lateral views of the chest are obtained. FINDINGS: Scattered senescent parenchymal changes noted. Hyperinflation compatible with COPD. Perihilar and basilar infiltrates persist with mild improved aeration at the lung bases. Heart size is stable. Mediastinal structures are stable and grossly unremarkable. No evidence for hilar prominence. Degenerative changes dorsal spine. IMPRESSION: 1. Perihilar and basilar infiltrates persist with mild improved aeration at the lung bases.
[2022-09-10] MEDS: ATORVASTATIN 80 MG TAB PO SCH (20:55)
[2022-09-10] MEDS: HEPARIN SODIUM,PORCINE/PF 5,000 UNIT/0.5 ML SYRINGE SQ SCH (20:55)
[2022-09-10] MEDS: ASPIRIN 81 MG PO SCH (20:55)
[2022-09-10] MEDS: PANTOPRAZOLE 40 MG TABLET PO SCH (20:55)
[2022-09-10] MEDS: SERTRALINE 100 MG TAB PO SCH (20:55)
[2022-09-10] MEDS: SUCRALFATE 1 GM TAB PO SCH (20:55)
[2022-09-10] MEDS: CYCLOBENZAPRINE 10 MG TAB PO PRN (20:55)
--- NOTE | 2022-09-10 22:48 | P.PN ---
Subjective Progress Note Date: 09/10/22 Principal diagnosis: Aspiration pneumonia Patient is a 61-year-old female presenting to the hospital 09/05/2022 in this patient with a chronic back pain from degenerative disc disease patient is status postlaminectomy and decompression L4-5 L5-S1 along with discectomy and placement of interbody graft, patient did have a postoperative nausea and vomiting subsequently developing a fever and x-ray did show evidence of perihilar infiltrate concern for possible aspiration pneumonia On today's evaluation that is 09/10/2022, the patient continues to be afebrile, patient is breathing comfortably however the patient is still requiring supplemental oxygen 4 L nasal cannula, the patient denies having any chest pain no worsening cough no further nausea no vomiting no abdominal pain or diarrhea Objective - Vital Signs Vital signs: Vital Signs Temp 98.3 F 09/10/22 07:12 Pulse 70 09/10/22 07:12 Resp 19 09/10/22 07:12 BP 126/68 09/10/22 07:12 Pulse Ox 91 L 09/10/22 07:12 FiO2 Intake & Output 09/09/22 09/10/22 09/10/22 18:59 06:59 18:59 Other: Voiding Method Toilet Toilet # Voids 1 4 - Exam GENERAL DESCRIPTION: A middle-age female up in the chair in no distress RESPIRATORY SYSTEM: Unlabored breathing , decreased breath sounds at bases HEART: S1 S2 regular rate and rhythm , ABDOMEN: Soft , no tenderness EXTREMITIES: No edema feet - Labs CBC & Chem 7: 09/08/22 06:13 09/08/22 06:13 Assessment and Plan (1) Aspiration pneumonia Current Visit: Yes Status: Acute Code(s): J69.0 - PNEUMONITIS DUE TO INHALATION OF FOOD AND VOMIT SNOMED Code(s): 254227978 Plan: 1patient with a fever in this patient electively admitted to the hospital for laminectomy and decompression and for5 and L5-S1 also have discectomy and placement of interbody graft patient did have a postop nausea and vomiting and now with evidence of right hilar infiltrate suspicious for pneumonia likely aspiration pneumonitis/pneumonia, patient currently do not have any other obvious focus for this fever with negative UA abdominal soft and examination and evidence of any cellulitis. 2patient continue with Augmentin however we'll repeat her chest x-ray PA and lateral and also check her inflammatory markers Time with Patient: Less than 30
[2022-09-11] MEDS: traZODone HCL 100 MG TAB PO SCH (00:22)
[2022-09-11] MEDS: SODIUM CHLORIDE 0.9% 1,000 ML IV SCH (00:48)
[2022-09-11] MEDS: HYDROcodone/APAP 7.5-325MG 1 EACH TAB PO PRN ×3 (02:30→16:17)
--- NOTE | 2022-09-11 05:53 | PN ---
PROGRESS NOTE DATE OF SERVICE: 09/10/2022 SUBJECTIVE: This is a 61-year-old woman who was admitted after decompression and fusion, had postoperative hypotension and fever, possibly aspiration pneumonia. Patient on IV antibiotics. Infectious Disease following the patient closely. No chest pain. No palpitation. OBJECTIVE: VITAL SIGNS: Pulse is 70, blood pressure 120/60, respirations 18. CHEST: A few scattered rhonchi and crackles. ABDOMEN: Soft. BACK: Status post surgery. LABORATORY DATA: Noted. ASSESSMENT: 1. Status post decompression and fusion of L4-L5, L5-S1. 2. Postoperative hypotension. 3. Possible aspiration pneumonia. 4. Hyperlipidemia. 5. Gastroesophageal reflux disease. 6. Multiple medical issues. RECOMMENDATIONS AND DISCUSSION: Recommend to continue current medications, continue symptomatic treatment. Continue with antibiotics. Repeat labs. Closely follow with Infectious Disease and Orthopedic Surgery. DVT prophylaxis. Further recommendations to follow. MMODL / IJN: [id number] /
[2022-09-11] MEDS: METOPROLOL TARTRATE 12.5 MG TAB PO SCH (08:18)
[2022-09-11] MEDS: CHOLECALCIFEROL 125 MCG (5000 IU) TABLET PO SCH (08:19)
[2022-09-11] MEDS: AMOXIC-POT CLAV 875-125MG 1 EACH TAB PO SCH (08:19)
[2022-09-11] MEDS: HEPARIN SODIUM,PORCINE/PF 5,000 UNIT/0.5 ML SYRINGE SQ SCH (08:19)
[2022-09-11] MEDS: SENNOSIDES-DOCUSATE SODIUM 1 EACH TAB PO SCH (08:19)
[2022-09-11 08:50] LABS: Basophils # (A) 0.04 X 10*3/uL (0.00-0.10); Basophils % (A) 0.6 %; Eosinophils # (A) 0.59 X 10*3/uL (0.04-0.35); Eosinophils % (A) 9.3 %; HCT 27.2 % (37.2-46.3); HGB 8.9 g/dL (12.0-15.0); Immature Grans, Automated 0.9 %; Lymphocytes # (A) 1.66 X 10*3/uL (0.90-5.00); Lymphocytes % (A) 26.1 %; MCH 29.9 pg (27.0-32.0); MCHC 32.7 g/dL (32.0-37.0); MCV 91.3 fL (80.0-97.0); Mean Platelet Volume 10.6 fL (9.5-12.2); Monocytes # (A) 0.68 X 10*3/uL (0.20-1.00); Monocytes % (A) 10.7 %; NRBC Per 100 WBC 0 /100 WBCS (0.0-0.0); Neutrophils # (A) 3.33 X 10*3/uL (1.80-7.70); Neutrophils % (A) 52.4 %; Platelet Count 245 X 10*3/uL (140-440); RBC 2.98 X 10*6/uL (4.10-5.20); WBC 6.36 X 10*3/uL (4.50-10.00)
[2022-09-11 08:57] LABS: Anion Gap 10.7 mmol/L (10.00-18.00); BUN/Creat Ratio 8.83 Ratio (12.00-20.00); Blood Urea Nitrogen 5.3 mg/dL (9.0-27.0); C Reactive Protein 4.8 mg/dL (0.00-0.80); Calcium 8.4 mg/dL (8.7-10.3); Carbon Dioxide 28.3 mmol/L (20.0-27.5); Non-African American GFR(CKD) 98.4 (60.0-200.0); Potassium 3.3 mmol/L (3.5-5.5)
[2022-09-11] MEDS ORDERED: Potassium Replacement Protocol 1 EACH MISC MISCELLANE PRN (11:46)
[2022-09-11] MEDS ORDERED: Magnesium Replacement Protocol 1 EACH MISC MISCELLANE PRN (11:46)
--- NOTE | 2022-09-11 12:00 | P.PN ---
Subjective Progress Note Date: 09/11/22 Principal diagnosis: Aspiration pneumonia Patient is a 61-year-old female presenting to the hospital 09/05/2022 in this patient with a chronic back pain from degenerative disc disease patient is status postlaminectomy and decompression L4-5 L5-S1 along with discectomy and placement of interbody graft, patient did have a postoperative nausea and vomiting subsequently developing a fever and x-ray did show evidence of perihilar infiltrate concern for possible aspiration pneumonia On today's evaluation that is 09/11/2022, the patient remains to be afebrile, patient is breathing comfortably on room air as of this morning sitting around 94%, the patient denies having any chest pain, cough has decreased in intensity, no further nausea no vomiting no abdominal pain or diarrhea Objective - Vital Signs Vital signs: Vital Signs Temp 98.5 F 09/11/22 07:03 Pulse 69 09/11/22 07:03 Resp 17 09/11/22 08:19 BP 158/79 09/11/22 07:03 Pulse Ox 95 09/11/22 07:03 FiO2 Intake & Output 09/10/22 09/11/22 09/11/22 18:59 06:59 18:59 Intake Total 236 Balance 236 Intake: Oral 236 Other: Voiding Method Toilet Toilet # Voids 3 1 - Exam GENERAL DESCRIPTION: A middle-age female up in the chair in no distress RESPIRATORY SYSTEM: Unlabored breathing , decreased breath sounds at bases HEART: S1 S2 regular rate and rhythm , ABDOMEN: Soft , no tenderness EXTREMITIES: No edema feet - Labs CBC & Chem 7: 09/11/22 04:54 09/11/22 04:54 Labs: Abnormal Lab Results - Last 24 Hours (Table) 09/11/22 09/11/22 Range/Units 04:54 04:54 RBC 2.98 L (4.10-5.20) X 10*6/uL Hgb 8.9 L (12.0-15.0) g/dL Hct 27.2 L (37.2-46.3) % RDW 15.0 H (11.5-14.5) % Immature Gran # 0.06 H (0.00-0.04) X 10*3/uL Eosinophils # 0.59 H (0.04-0.35) X 10*3/uL Potassium 3.3 L (3.5-5.5) mmol/L Carbon Dioxide 28.3 H (20.0-27.5) mmol/L BUN 5.3 L (9.0-27.0) mg/dL BUN/Creatinine Ratio 8.83 L (12.00-20.00) Ratio Calcium 8.4 L (8.7-10.3) mg/dL C-Reactive Protein 4.80 H (0.00-0.80) mg/dL Assessment and Plan (1) Aspiration pneumonia Current Visit: Yes Status: Acute Code(s): J69.0 - PNEUMONITIS DUE TO INHALATION OF FOOD AND VOMIT SNOMED Code(s): 650356876 Plan: 1patient with a fever in this patient electively admitted to the hospital for laminectomy and decompression and for5 and L5-S1 also have discectomy and placement of interbody graft patient did have a postop nausea and vomiting and now with evidence of right hilar infiltrate suspicious for pneumonia likely aspiration pneumonitis/pneumonia, patient currently do not have any other obvious focus for this fever with negative UA abdominal soft and examination and evidence of any cellulitis. 2patient did have repeat chest x-ray PA and lateral completely yesterday and it shows some improvement patient has shown clinical improvement and able to finish therapy with oral Augmentin prescription was sent to the pharmacy Time with Patient: Less than 30
--- NOTE | 2022-09-11 12:41 | P.DS ---
Providers Date of admission: 09/10/22 08:48 Expected date of discharge: 09/11/22 Attending physician: Sarah Connell Consults: 09/05/22 13:00 Consult Physician Routine Consulting Provider: Radha Holley Consult Reason/Comments: Medical management Do you want consulting provider notified?: Yes 09/07/22 16:09 Consult Physician Routine Consulting Provider: Arturo Vazquez Consult Reason/Comments: fever /pneumonia Do you want consulting provider notified?: Yes Primary care physician: Elaina Forrester - Discharge Diagnosis(es) (1) DDD (degenerative disc disease), lumbosacral Current Visit: Yes Status: Acute (2) Lumbar degenerative disc disease Current Visit: Yes Status: Acute (3) Spondylolisthesis, lumbar region Current Visit: Yes Status: Acute (4) Low back pain Current Visit: Yes Status: Acute (5) Radiculopathy with lower extremity symptoms Current Visit: Yes Status: Acute (6) Lumbar facet arthropathy Current Visit: Yes Status: Acute (7) Status post lumbar spinal fusion Current Visit: Yes Status: Acute (8) Foraminal stenosis of lumbar region Current Visit: Yes Status: Acute (9) Postoperative fever Current Visit: Yes Status: Acute (10) Hyperlipidemia Current Visit: Yes Status: Acute (11) Coronary artery disease Current Visit: Yes Status: Acute (12) Obesity (BMI 30-39.9) Current Visit: Yes Status: Acute (13) Oxygen desaturation Current Visit: Yes Status: Acute (14) Pneumonia Current Visit: Yes Status: Acute Hospital Course: This is a pleasant 61-year-old female who presented with L4-5 spondylolisthesis, L4-5 and L5-S1 degenerative disc disease, facet arthropathy, and foraminal stenosis, low back pain, and lower extremity radiculopathy who failed outpatient conservative therapy. She was admitted for L4-5 and L5-S1 minimally invasive posterior lateral decompression and fusion with transforaminal lumbar interbody fusion. She had been progressing well in regards to her lumbosacral spine postoperatively. She was having some difficulty with oxygen saturation and pneu monia over the weekend. She was experiencing a fever with hypoxia without O2 nasal cannula. She was requiring 3 L of O2 nasal cannula. This has continued to improve. Her chest x-ray imaging has also improved. She was able to discontinue O2 nasal cannula today. She is dressed in regular clothing. She has been able to ambulate the hallways. She feels she is ready for discharge home today. She has remained afebrile. Her low back pain is well-controlled. She is not currently complaining of any significant lower extremity radiculopathy. She is eating and voiding without difficulty. She has been able to have a bowel movement without difficulty. She is happy with her progress over the last couple days. She has continued to be seen and examined by medicine and infectious disease. We did discuss she will need to be cleared by medicine and infectious disease prior to discharge home today. Condition on day of discharge stable. Patient will be discharged home. Patient was cleared preoperatively for surgery by Dr. Forrester. Patient currently denies any nausea, vomiting, fever, or chills. Infectious disease has prescribed Augmentin to be taken outpatient setting. This medication has been sent to the pharmacy as well. Dressings had been removed or the surgical sites of the lumbosacral spine right iliac crest. Incision sites are clean, dry, and intact. No erythema, bruising, or obvious signs of infection. He remains intact. Patient may shower without a dressing intact at this time. Patient should refrain from driving until at least after their first follow-up appointment in the office. Patient should avoid excessive bending, lifting, and twisting; no lifting greater than 10 pounds. Patient may utilize a walker to aid in ambulation as needed. MAPS has been reviewed last Saturday. An "Opiod Start Talking" Form has been signed and placed in the patient's chart. A prescription has been written for hydrocodone 7.5 mg/325 mg, take 1-2 tabs every 6 hours as needed for pain, dispensed #56. She is given prescription for cyclobenzaprine 10 mg 1 tab 3 times a day as needed for muscle spasm, dispensed #60. She is also given a prescription for Zofran 4 mg as needed for nausea. Medications are sent to the [facility] pharmacy located within [facility] per request of the patient. Patient's other medical diagnoses include hyperlipidemia, coronary artery disease, and history of IBS/diverticulitis. Physical Exam on day of discharge: Status post surgical day number 6 Patient is awake, alert, and oriented 3 Vital signs stable Adequate chest excursion with deep inspiration and expiration Dorsiflexion, plantarflexion, and extensor hallucis longus positive sustained bilaterally No signs or symptoms of DVT; no calf pain; pneumatic cuffs not currently intact bilateral lower extremities Optifoam dressings have been removed over the lumbar spine and right iliac crest; no erythema, purulence, or signs of infection Surgical sites are clean and dry Patient is able to perform good active range of motion of the bilateral lower extremities independently without difficulty Neurovascularly intact bilaterally lower extremities Procedures: L4-5 and L5-S1 minimally invasive posterior lateral decompression and fusion with transforaminal lumbar interbody fusion Patient Condition at Discharge: Stable Plan - Discharge Summary Discharge Rx Participant: Yes New Discharge Prescriptions: New HYDROcodone/APAP 7.5-325MG [Broadway 7.5-325] 1 - 2 each PO Q6HR PRN #56 tab PRN Reason: Pain Cyclobenzaprine [Flexeril] 10 mg PO TID PRN #60 tab PRN Reason: Muscle Spasm Ondansetron [Zofran] 4 mg PO Q6HR PRN #30 tab PRN Reason: Nausea Amoxic-Pot Clav 875-125Mg [Augmentin 875-125] 1 tab PO BID 7 Days #14 tab Continue Losartan [Cozaar] 50 mg PO HS Sucralfate [Carafate] 1 gm PO HS Metoprolol Tartrate [Lopressor] 12.5 mg PO BID Ondansetron Odt [Zofran ODT] 4 mg PO Q8HR PRN #14 tab PRN Reason: Nausea traZODone HCL 100 mg PO HS amLODIPine [Norvasc] 5 mg PO HS Cholecalciferol (Vitamin D3) [Vitamin D3 (125 MCG = 5,000 IU)] 125 mcg PO DAILY Sertraline HCl [Zoloft] 200 mg PO HS Aspirin [Adult Low Dose Aspirin EC] 81 mg PO HS Esomeprazole Magnesium [NexIUM 24Hr] 40 mg PO HS Rosuvastatin Calcium [Crestor] 40 mg PO HS HYDROcodone/APAP 7.5-325MG [Broadway 7.5-325] 1 - 2 tab PO Q6HR PRN #32 tab PRN Reason: Pain Sennosides-Docusate Sodium [Senokot-S] 1 tab PO BID PRN PRN Reason: Constipation Discharge Medication List Aspirin [Adult Low Dose Aspirin EC] 81 mg PO HS 01/13/21 [History] Cholecalciferol (Vitamin D3) [Vitamin D3 (125 MCG = 5,000 IU)] 125 mcg PO DAILY 01/13/21 [History] Esomeprazole Magnesium [NexIUM 24Hr] 40 mg PO HS 01/13/21 [History] Losartan [Cozaar] 50 mg PO HS 01/13/21 [History] Sertraline HCl [Zoloft] 200 mg PO HS 01/13/21 [History] Sucralfate [Carafate] 1 gm PO HS 01/13/21 [History] amLODIPine [Norvasc] 5 mg PO HS 01/13/21 [History] traZODone HCL 100 mg PO HS 01/13/21 [History] Metoprolol Tartrate [Lopressor] 12.5 mg PO BID 05/30/21 [History] Rosuvastatin Calcium [Crestor] 40 mg PO HS 05/30/21 [History] HYDROcodone/APAP 7.5-325MG [Broadway 7.5-325] 1 - 2 tab PO Q6HR PRN #32 tab 10/02/21 [Rx] Ondansetron Odt [Zofran ODT] 4 mg PO Q8HR PRN #14 tab 10/02/21 [Rx] Sennosides-Docusate Sodium [Senokot-S] 1 tab PO BID PRN 08/31/22 [History] Cyclobenzaprine [Flexeril] 10 mg PO TID PRN #60 tab 09/07/22 [Rx] HYDROcodone/APAP 7.5-325MG [Broadway 7.5-325] 1 - 2 each PO Q6HR PRN #56 tab 09/07/22 [Rx] Ondansetron [Zofran] 4 mg PO Q6HR PRN #30 tab 09/07/22 [Rx] Amoxic-Pot Clav 875-125Mg [Augmentin 875-125] 1 tab PO BID 7 Days #14 tab 09/11/22 [Rx] Follow up Appointment(s)/Referral(s): Sarah Connell DO [Doctor of Osteopathic Medicine] - 09/18/22 1:45 pm Elaina Forrester DO [Primary Care Provider] - 1 Week Residential Home,Health [NON-STAFF] - 1-2 Days (home care will call to set up schedulae, Any questions please call agency. ) Activity/Diet/Wound Care/Special Instructions: 1. Patient may shower without a dressing intact. 2. Patient may use a walker to aid in ambulation as needed 3. Patient should refrain from driving until at least after their first follow- up appointment in the office. 4. Patient should avoid excessive bending, twisting, lifting; avoid overhead lifting; no lifting greater than 10 pounds 5. Take medications as prescribed 6. Patient should avoid anti-inflammatory medications over the next 6 weeks postoperatively 7. Do not soak in tub ANTIBIOTICS PER ID Discharge Disposition: HOME SELF-CARE
--- NOTE | 2022-09-11 12:59 | PN ---
PROGRESS NOTE DATE OF SERVICE: 09/11/2022 SUBJECTIVE: This is a 61-year-old woman admitted after back surgery, also had aspiration pneumonia. No chest pain, no palpitations, no fever. OBJECTIVE: VITAL SIGNS: Pulse is 69, blood pressure 158/70, respirations 17. CHEST: Bilateral scattered rhonchi and crackles. ABDOMEN: Soft. NERVOUS SYSTEM: No focal deficits. LABORATORY DATA: Reviewed. ASSESSMENT: 1. Status post decompression fusion L4-L5, L5-S1. 2. Postoperative hypotension. 3. Possible aspiration pneumonia. 4. Hyperlipidemia. 5. GERD. 6. Multiple medical issues. RECOMMENDATIONS: Recommended to continue current medications, continue symptomatic treatment. Continue the antibiotics per Infectious Disease. I would also recommend to resume home medications, DVT prophylaxis per Ortho. Continue the home medications. Follow up with primary physician. MMHAILE / DIVINEN: [id number] /
[2022-09-11 13:20] VITALS: BP 135/81; PULSE 73; RESP 19; TEMP 98.3
--- NOTE | 2022-09-14 14:20 | CDI ---
Documentation Clarification Form Date: 09/14/2022 01:54:59 PM From: Kennedi Figueroa RN, CCDS Email: [email or web address] Admit Date: 09/10/2022 08:48:00 AM Patient Name: Ashley Ferrell Visit Number: [id number] Discharge Date: 09/11/2022 04:57:00 PM ATTENTION: The Clinical Documentation Specialists (CDI) and [facility] Coding Staff appreciate your assistance in clarifying documentation. Please respond to the clarification below the line at the bottom and electronically sign. The CDI & [facility] Coding staff will review the response and follow-up if needed. Please note: Queries are made part of the Legal Health Record. If you have any questions, please contact the author of this message via ITS. Dr. Radha Holley Postoperative hypotension is documented in the progress notes and patient had a procedure on 09/05. Additional clarification is requested regarding the relationship, if any, that exists between the diagnosis and the procedure. Patients Admitting Diagnosis: Spondylolisthesis L4 5, foraminal stenosis of L4 5 L5-S1, degenerative disc disease L4 5 L5-S1, lower extremity radiculopathy, low back pain, facet arthrosis L4 5 L5-S1 Post-Operative Diagnosis: Same Procedure performed: Laminectomy and decompression L4 5 L5-S1 Computer CT navigation aided minimally invasive posterior lateral decompression and facet fusion L4 5 L5-S1. Minimally invasive Transforaminal lumbar interbody fusion for a 360 fusion at L4 5 L5-S1. Discectomy for decompression L4 5 L5-S1. Placement of interbody graft L4 5 L5-S1. Use of computer navigation for fusion. Local autogenous bone grafting. Aspiration of bone marrow from the vertebral body pedicle of L4 on the right. Use of bone graft extenders. History/Risk Factors: HTN, HLD, CAD, spondylolisthesis. S/P surgery as above. Clinical Indicators: 09/05 BP's: 157/83-107/59-92/57 09/06 BP's: 88/51-90/52-105/64 09/08 BP's: 92/57-96/57-108/66 09/10 BP's: 113/57-154/76 09/11 BP: 158/79 09/07 Ortho: "postoperative fever and hypotension." 09/08 IM: "Hypotension postoperative. Fever possible due to aspiration pneumonia procalcitonin is elevated.." 09/10 IM: "postoperative hypotension and fever, possibly aspiration pneumonia." Treatment: Continue IV fluids and give fluid bolus. Hold Amlodipine and Losartan IM Consults: "Hypotension postoperative patient has history of hypertension and recommend to hold amlodipine and losartan at this time." What relationship, if any, exists between the diagnosis of postoperative hypotension and the procedure: [ ] Postoperative hypotension is a complication of surgical procedure [ ] Postoperative hypotension is an expected outcome of anesthesia [ ] Postoperative hypotension is related to patients co-morbid condition of aspiration pneumonia & not a complication of the procedure [ ] Other please specify ____ [ ] Unable to determine Postoperative hypotension is an expected outcome of anesthesia MTDD
== END 2022-09-11 16:57 | disposition home or self-care (01) | DRG 453 ==
LOC: OR 07:29 → 4SSUR 14:18 → OR 09-06 08:43 → 4SSUR 09-06 08:43 → OBSVTOIN 09-10 08:48
PROVIDERS: ADMIT Orthopaedic Surgery Orthopaedic Surgery of the Spine; ATTEND Orthopaedic Surgery Orthopaedic Surgery of the Spine
PROC: 0SG00AJ Fusion of Lumbar Vertebral Joint with Interbody Fusion Device, Posterior Approach, Anterior Column, Open Approach (ICD-10-PCS; principal; 2022-09-10)
PROC: 0SG0071 Fusion of Lumbar Vertebral Joint with Autologous Tissue Substitute, Posterior Approach, Posterior Column, Open Approach (ICD-10-PCS; 2022-09-10)
PROC: 0SG30AJ Fusion of Lumbosacral Joint with Interbody Fusion Device, Posterior Approach, Anterior Column, Open Approach (ICD-10-PCS; 2022-09-10)
PROC: 0SG3071 Fusion of Lumbosacral Joint with Autologous Tissue Substitute, Posterior Approach, Posterior Column, Open Approach (ICD-10-PCS; 2022-09-10)
PROC: 01NB0ZZ Release Lumbar Nerve, Open Approach (ICD-10-PCS; 2022-09-10)
PROC: 0ST20ZZ Resection of Lumbar Vertebral Disc, Open Approach (ICD-10-PCS; 2022-09-10)
PROC: 0ST40ZZ Resection of Lumbosacral Disc, Open Approach (ICD-10-PCS; 2022-09-10)
PROC: 30233N0 Transfusion of Autologous Red Blood Cells into Peripheral Vein, Percutaneous Approach (ICD-10-PCS; 2022-09-10)
DX: M43.16 Spondylolisthesis, lumbar region (principal); J69.0 Pneumonitis due to inhalation of food and vomit; M51.16 Intervertebral disc disorders with radiculopathy, lumbar region; M48.061 Spinal stenosis, lumbar region without neurogenic claudication; M51.17 Intervertebral disc disorders with radiculopathy, lumbosacral region; M48.07 Spinal stenosis, lumbosacral region; I10 Essential (primary) hypertension; F32.A Depression, unspecified; M19.90 Unspecified osteoarthritis, unspecified site; E78.5 Hyperlipidemia, unspecified; Z98.1 Arthrodesis status; Z96.642 Presence of left artificial hip joint; F17.210 Nicotine dependence, cigarettes, uncomplicated; R09.02 Hypoxemia; I95.9 Hypotension, unspecified; G89.29 Other chronic pain; Z20.822 Contact with and (suspected) exposure to COVID-19; M47.26 Other spondylosis with radiculopathy, lumbar region; E66.9 Obesity, unspecified; I25.10 Atherosclerotic heart disease of native coronary artery without angina pectoris; G43.909 Migraine, unspecified, not intractable, without status migrainosus; F41.9 Anxiety disorder, unspecified; K21.9 Gastro-esophageal reflux disease without esophagitis; Z79.899 Other long term (current) drug therapy; Z79.82 Long term (current) use of aspirin; Z68.35 Body mass index [BMI] 35.0-35.9, adult; Z87.01 Personal history of pneumonia (recurrent)
CPT/HCPCS: 71045; 71046; 72100; 80048; 81001; 84145; 85025; 86140; 86850; 86900; 86901; 87636